=== PATIENT | female | born 1945 | race Caucasian/White ===

== ENCOUNTER 2022-05-07 15:20 | Inpatient (IN) ==
[2022-05-07 17:14] LABS: Red Cell Distribution Width 12.4 % (11.5-14.5)
[2022-05-07 17:15] LABS: Hematocrit 37.8 % (35.3-44.9); Hemoglobin 12.3 g/dL (11.5-15.4); Mean Corpuscular HGB Conc 32.5 g/dL (31.6-35.5); Mean Corpuscular Hemoglobin 30.2 pg (28.0-33.3); Mean Corpuscular Volume 92.9 fL (83.0-100.0); Mean Platelet Volume 10.6 fL (9.4-12.4); Monocytes # 0.2 K/mcL (0.0-1.3); Platelet Count 120 K/mcL (140-400); Red Blood Count 4.07 M/mcL (3.82-4.97); White Blood Count 1.7 K/mcL (4.3-11.1)
[2022-05-07 17:23] LABS: Prothrombin Time 11.2 Seconds (9.4-12.1)
[2022-05-07 17:25] LABS: Activated Partial Thrombo Time 29.2 Seconds (26.0-36.0)
[2022-05-07 17:35] LABS: Albumin 4.1 g/dL (3.5-5.7); Albumin/Globulin Ratio 1.4 (1.1-2.2); Bilirubin,Indirect 0.3 mg/dL (0.0-1.0); Bilirubin,Total 0.3 mg/dL (0.3-1.0); Calcium 9.2 mg/dL (8.6-10.3); Magnesium 1.3 mg/dL (1.6-2.6); Phosphorous 3.3 mg/dL (2.7-4.5); Potassium 5.2 mEq/L (3.5-5.1); Total Protein 7.1 g/dL (6.4-8.9); Troponin I 0.03 ng/mL (< 0.04)
[2022-05-07] MEDS ORDERED: 0.9 % Sodium Chloride 1,000 ML IVC ONE (17:43)
[2022-05-07] MEDS ORDERED: Acetaminophen 325 MG TABLET PO ONE (17:59)
[2022-05-07] MEDS ORDERED: Magnesium Sulfate 1 GM/102 ML PIGGYBACK IVPB ONE (18:00)
[2022-05-07] MEDS ORDERED: Cefepime HCl 2,000 MG in 0.9 % Sodium Chloride 10 ML IVP ONE (18:00)
[2022-05-07 18:03] LABS: Lymphocytes # 0.8 K/mcL (0.6-4.6); Neutrophils # 0.8 K/mcL (1.6-8.9)
[2022-05-07 18:04] LABS: Platelet Estimate Normal (Normal)
[2022-05-07 18:38] LABS: Amorphous Sediment,Urine Few per hpf (None-Few); Bilirubin,Urine Negative (Negative); Blood,Urine Small (Negative); Clarity,Urine Clear (Clear); Color,Urine Light-Yellow (Yellow); Glucose,Urine (UA) Normal (Normal); Ketones,Urine 10 mg/dL (Negative); Leukocyte Esterase,Urine Negative (Negative); Nitrite,Urine Negative (Negative); PH,Urine 5.5 pH Units (5.0-8.0); Protein,Urine 30 mg/dL (Neg-Trace); Specific Gravity,Urine 1.019 (1.010-1.025); Squamous Epithelial Cell,Urine Few per hpf (None-Few); Urobilinogen,Urine Normal (Normal); WBC,Urine 0-3 per hpf (0-3)
[2022-05-07 18:43] LABS: Influenza A PCR Negative (Negative); Influenza B PCR Negative (Negative); Resp. Syncytial Virus PCR Negative (Negative)
[2022-05-07 18:57] LABS: SARS-CoV-2 by PCR (In House) Negative (Negative)
[2022-05-07] MEDS ORDERED: Ondansetron 4 MG/2 ML VIAL IVP PRN (21:40)
[2022-05-07] MEDS ORDERED: Acetaminophen 325 MG TABLET PO PRN (21:40)
[2022-05-07] MEDS ORDERED: Naloxone 0.4 MG/ML INJ IVP PRN (21:40)
[2022-05-07] MEDS ORDERED: Haloperidol Lactate 5 MG/ML VIAL IVP ONE (22:10)
[2022-05-07 22:13] LABS: Amphetamine Screen,Urine Negative ng/mL (Cutoff=1000); Barbiturate Screen,Urine Negative ng/mL (Cutoff=200); Benzodiazepines Screen,Urine Negative ng/mL (Cutoff=200); Cannabinoid Screen,Urine Negative ng/mL (Cutoff = 50); Cocaine Screen,Urine Negative ng/mL (Cutoff= 300); Opiate Screen,Urine Negative ng/mL (Cutoff=300); Phencyclidine Screen,Urine Negative ng/mL (Cutoff=25)
[2022-05-07] MEDS: 0.9 % Sodium Chloride 1,000 ML IVC SCH (22:17)
[2022-05-07] MEDS: rOPINIRole 0.25 MG TABLET PO SCH (22:18)
[2022-05-07] MEDS ORDERED: *HR* LORazepam 2 MG/ML VIAL IVP ONE (22:49)
[2022-05-07] MEDS ORDERED: Dextrose Gel 15 GM/37.5 ML TUBE PO PRN ×2 (23:11)
[2022-05-07] MEDS ORDERED: D5% in Water 1,000 ML IVC PRN (23:11)
[2022-05-08] MEDS ORDERED: Morphine Sulfate 2 MG/ML SYRINGE IVP ONE ×2 (00:20→08:39)
[2022-05-08 02:40] LABS: Adenovirus Not Detected (Not Detect); Bordetella Pertussis Not Detected (Not Detect); Chlamydophila pneumoniae Not Detected (Not Detect); Coronavirus 229E Not Detected (Not Detect); Coronavirus HKU1 Not Detected (Not Detect); Coronavirus NL63 Not Detected (Not Detect); Coronavirus OC43 Not Detected (Not Detect); Human Metapneumovirus Not Detected (Not Detect); Human Rhinovirus/Enterovirus Not Detected (Not Detect); Influenza A Subtype 2009 H1 Not Detected (Not Detect); Influenza B Not Detected (Not Detect); Mycoplasma pneumoniae Not Detected (Not Detect); Parainfluenza Virus 1 Not Detected (Not Detect); Parainfluenza Virus 2 Not Detected (Not Detect); Parainfluenza Virus 3 Not Detected (Not Detect); Parainfluenza Virus 4 Not Detected (Not Detect); Respiratory Syncytial Virus Not Detected (Not Detect); SARS-CoV-2 Not Detected (Not Detect)
[2022-05-08 03:58] LABS: Hematocrit 34.2 % (35.3-44.9); Hemoglobin 11.1 g/dL (11.5-15.4); Mean Corpuscular HGB Conc 32.5 g/dL (31.6-35.5); Mean Corpuscular Hemoglobin 30.7 pg (28.0-33.3)
[2022-05-08 03:59] LABS: Immature Platelets 5.2 % (1.1-6.1); Mean Corpuscular Volume 94.5 fL (83.0-100.0); Mean Platelet Volume 10.9 fL (9.4-12.4); Prothrombin Time 11.6 Seconds (9.4-12.1); Red Blood Count 3.62 M/mcL (3.82-4.97); Red Cell Distribution Width 12.3 % (11.5-14.5); White Blood Count 1.9 K/mcL (4.3-11.1)
[2022-05-08 04:12] LABS: Calcium 8.6 mg/dL (8.6-10.3); Magnesium 1.6 mg/dL (1.6-2.6); Potassium 4.6 mEq/L (3.5-5.1)
[2022-05-08 04:14] LABS: Estimated Average Glucose 131 mg/dl; Hemoglobin A1C 6.2 %
[2022-05-08 04:18] LABS: C-Reactive Protein < 5 mg/L (Less than 10)
[2022-05-08 04:25] LABS: Thyroid Stimulating Hormone 2.193 mcIU/mL (0.340-5.600)
[2022-05-08 04:38] LABS: Folate > 22.3 ng/mL (3.0-16.0); Platelet Count 90 K/mcL (140-400); Vitamin B12 625 pg/mL (250-1100)
[2022-05-08 04:42] LABS: Monocytes # 0.1 K/mcL (0.0-1.3); Neutrophils # 0.8 K/mcL (1.6-8.9); Platelet Estimate Decreased (Normal)
[2022-05-08 05:49] LABS: Hepatitis B Surface Antigen Nonreactive (Nonreactive)
[2022-05-08] MEDS ORDERED: Cefepime HCl 2,000 MG in 0.9 % Sodium Chloride Mini Bag 100 ML IVPB SCH (06:00)
[2022-05-08] MEDS ORDERED: *HR* Heparin 5,000 UNIT/ML VIAL SQ SCH (06:00)
[2022-05-08 06:18] LABS: Hepatitis C Virus Antibody Nonreactive (Nonreactive)
[2022-05-08 06:19] LABS: Hepatitis B Core IgM Nonreactive (Nonreactive)
[2022-05-08 06:20] LABS: Hepatitis A Antibody IgM Nonreactive (Nonreactive)
[2022-05-08] MEDS: Insulin LISPRO 300 UNITS/3 ML VIAL SUBQ SCH ×3 (08:09→17:19)
[2022-05-08] MEDS: carvediloL 6.25 MG TABLET PO SCH (08:10)
[2022-05-08] MEDS: 0.9 % Sodium Chloride 1,000 ML IVC SCH (08:15)
[2022-05-08] MEDS ORDERED: Azithromycin 500 MG in 0.9 % Sodium Chloride 250 ML IVPB SCH (09:00)
[2022-05-08] MEDS ORDERED: Acetaminophen IV 1,000 MG/100 ML BAG IVPB ONE (09:37)
[2022-05-08] MEDS ORDERED: *HR* LORazepam 2 MG/ML VIAL IVP ONE (12:34)
[2022-05-08] MEDS: cefTRIAXone 2,000 MG in 0.9 % Sodium Chloride Mini Bag 100 ML IVPB SCH ×2 (12:42→23:09)
[2022-05-08] MEDS: Doxycycline 100 MG in 0.9 % Sodium Chloride Mini Bag 100 ML IVPB SCH (12:45)
[2022-05-08] MEDS: rOPINIRole 0.25 MG TABLET PO SCH (21:16)
[2022-05-08] MEDS: Morphine Sulfate 2 MG/ML SYRINGE IVP PRN (21:17)
[2022-05-09] MEDS: Doxycycline 100 MG in 0.9 % Sodium Chloride Mini Bag 100 ML IVPB SCH ×2 (00:18→13:43)
[2022-05-09 01:42] LABS: Hemoglobin 11.3 g/dL (11.5-15.4); Mean Corpuscular Volume 95.1 fL (83.0-100.0); Red Cell Distribution Width 12.3 % (11.5-14.5)
[2022-05-09 01:44] LABS: Hematocrit 34.9 % (35.3-44.9); Immature Platelets 5.6 % (1.1-6.1); Lymphocytes % 46.9 %; Mean Corpuscular HGB Conc 32.4 g/dL (31.6-35.5); Mean Corpuscular Hemoglobin 30.8 pg (28.0-33.3); Mean Platelet Volume 10.6 fL (9.4-12.4); Monocytes # 0.2 K/mcL (0.0-1.3); Monocytes % 9.7 %; Neutrophils # 0.9 K/mcL (1.6-8.9); Red Blood Count 3.67 M/mcL (3.82-4.97); Segmented Neutrophils % 41.4 %; White Blood Count 2.1 K/mcL (4.3-11.1)
[2022-05-09 01:51] LABS: Platelet Count 84 K/mcL (140-400)
[2022-05-09 02:01] LABS: Albumin 3.2 g/dL (3.5-5.7); Albumin/Globulin Ratio 1.2 (1.1-2.2); Bilirubin,Total 0.2 mg/dL (0.3-1.0); Calcium 8.4 mg/dL (8.6-10.3); Globulin 2.6 g/dL (2.4-3.5); Magnesium 1.2 mg/dL (1.6-2.6); Potassium 4.1 mEq/L (3.5-5.1); Total Protein 5.8 g/dL (6.4-8.9)
[2022-05-09 02:07] LABS: Platelet Estimate Slight Decrease (Normal)
[2022-05-09] MEDS: Morphine Sulfate 2 MG/ML SYRINGE IVP PRN ×3 (04:52→20:16)
[2022-05-09] MEDS ORDERED: *HR* LORazepam 2 MG/ML VIAL IVP ONE ×2 (06:23→14:01)
[2022-05-09] MEDS: Insulin LISPRO 300 UNITS/3 ML VIAL SUBQ SCH ×3 (08:03→17:27)
[2022-05-09] MEDS: carvediloL 6.25 MG TABLET PO SCH (08:22)
[2022-05-09] MEDS ORDERED: *HR* LORazepam 2 MG/ML VIAL IM STA (08:48)
[2022-05-09] MEDS ORDERED: Vancomycin 1,500 MG/265 ML IV.SOLN IVPB ONE (11:00)
[2022-05-09] MEDS ORDERED: *HR* LORazepam 2 MG/ML VIAL IVP PRN (11:20)
[2022-05-09] MEDS: Acyclovir 550 MG in D5% in Water 100 ML IVPB SCH ×2 (11:43→20:16)
[2022-05-09] MEDS: Ampicillin 2,000 MG in 0.9 % Sodium Chloride Mini Bag 100 ML IVPB SCH ×4 (11:43→23:38)
[2022-05-09] MEDS: cefTRIAXone 2,000 MG in 0.9 % Sodium Chloride Mini Bag 100 ML IVPB SCH ×2 (11:44→21:59)
[2022-05-09] MEDS: *HR* LORazepam 2 MG/ML VIAL IVP PRN (16:01)
[2022-05-09] MEDS: Dexmedetomidine HCl 400 MCG/100 ML MLS IVC SCH (17:00)
[2022-05-09] MEDS ORDERED: 0.9 % Sodium Chloride 500 ML IVC ONE (18:06)
[2022-05-09] MEDS ORDERED: 0.9 % Sodium Chloride 500 ML ONE (18:08)
[2022-05-09] MEDS: rOPINIRole 0.25 MG TABLET PO SCH (20:45)
[2022-05-10] MEDS: Doxycycline 100 MG in 0.9 % Sodium Chloride Mini Bag 100 ML IVPB SCH ×2 (02:02→15:05)
[2022-05-10 02:30] LABS: Basophils % 0.9 %; Mean Corpuscular Hemoglobin 30.1 pg (28.0-33.3); Mean Platelet Volume 11.5 fL (9.4-12.4); Monocytes % 13.2 %
[2022-05-10 02:32] LABS: Hematocrit 35.8 % (35.3-44.9); Hemoglobin 11.5 g/dL (11.5-15.4); Immature Granulocytes % 0.9 % (0-4); Immature Platelets 5.9 % (1.1-6.1); Mean Corpuscular HGB Conc 32.1 g/dL (31.6-35.5); Mean Corpuscular Volume 93.7 fL (83.0-100.0); Monocytes # 0.4 K/mcL (0.0-1.3); Red Blood Count 3.82 M/mcL (3.82-4.97); Red Cell Distribution Width 12.3 % (11.5-14.5); White Blood Count 3.3 K/mcL (4.3-11.1)
[2022-05-10 02:40] LABS: Lymphocytes # 1.5 K/mcL (0.6-4.6); Neutrophils # 1.4 K/mcL (1.6-8.9); Platelet Count 99 K/mcL (140-400)
[2022-05-10 02:51] LABS: Albumin/Globulin Ratio 1.2 (1.1-2.2); Bilirubin,Total 0.2 mg/dL (0.3-1.0); Calcium 8.4 mg/dL (8.6-10.3); Globulin 2.5 g/dL (2.4-3.5); Potassium 4.2 mEq/L (3.5-5.1); Total Protein 5.5 g/dL (6.4-8.9)
[2022-05-10 02:53] LABS: Platelet Estimate Slight Decrease (Normal)
[2022-05-10] MEDS: Ampicillin 2,000 MG in 0.9 % Sodium Chloride Mini Bag 100 ML IVPB SCH ×4 (02:59→17:50)
[2022-05-10] MEDS: Acyclovir 550 MG in D5% in Water 100 ML IVPB SCH ×3 (03:33→20:14)
[2022-05-10] MEDS ORDERED: 0.9 % Sodium Chloride 500 ML IVC ONE ×2 (04:14→05:08)
[2022-05-10] MEDS: *HR* LORazepam 2 MG/ML VIAL IVP PRN ×2 (06:25→21:15)
[2022-05-10] MEDS: carvediloL 6.25 MG TABLET PO SCH (08:26)
[2022-05-10] MEDS: Insulin LISPRO 300 UNITS/3 ML VIAL SUBQ SCH ×3 (08:28→17:40)
[2022-05-10 10:56] LABS: EBV Ab(Viral Capsid Ag)VCA-IGG >750.0 U/mL (0.0-21.9)
[2022-05-10] MEDS: cefTRIAXone 2,000 MG in 0.9 % Sodium Chloride Mini Bag 100 ML IVPB SCH ×2 (11:39→23:09)
[2022-05-10] MEDS: Dexmedetomidine HCl 400 MCG/100 ML MLS IVC SCH ×2 (15:04→23:48)
[2022-05-10] MEDS: rOPINIRole 0.25 MG TABLET PO SCH (20:14)
[2022-05-10] MEDS ORDERED: Dexmedetomidine HCl 400 MCG/100 ML MLS IVC SCH (23:13)
[2022-05-10] MEDS: Morphine Sulfate 2 MG/ML SYRINGE IVP PRN (23:25)
[2022-05-11] MEDS: Ampicillin 2,000 MG in 0.9 % Sodium Chloride Mini Bag 100 ML IVPB SCH ×5 (00:13→16:54)
[2022-05-11 00:31] LABS: Basophils % 0.5 %; Hematocrit 35.1 % (35.3-44.9); Hemoglobin 11.7 g/dL (11.5-15.4); Immature Granulocytes % 0.6 % (0-4); Lymphocytes # 1.8 K/mcL (0.6-4.6); Lymphocytes % 22.9 %; Mean Corpuscular HGB Conc 33.3 g/dL (31.6-35.5); Mean Corpuscular Hemoglobin 30.4 pg (28.0-33.3); Mean Corpuscular Volume 91.2 fL (83.0-100.0); Mean Platelet Volume 11.1 fL (9.4-12.4); Monocytes # 1.1 K/mcL (0.0-1.3); Monocytes % 13.6 %; Neutrophils # 4.9 K/mcL (1.6-8.9); Platelet Count 119 K/mcL (140-400); Red Blood Count 3.85 M/mcL (3.82-4.97); Red Cell Distribution Width 12.5 % (11.5-14.5); Segmented Neutrophils % 62.4 %
[2022-05-11 00:35] LABS: White Blood Count 7.9 K/mcL (4.3-11.1)
[2022-05-11 00:51] LABS: Albumin 3.2 g/dL (3.5-5.7); Albumin/Globulin Ratio 1.2 (1.1-2.2); Bilirubin,Total 0.3 mg/dL (0.3-1.0); Calcium 8.6 mg/dL (8.6-10.3); Globulin 2.6 g/dL (2.4-3.5); Potassium 3.6 mEq/L (3.5-5.1); Total Protein 5.8 g/dL (6.4-8.9)
[2022-05-11 01:29] LABS: Platelet Estimate Slight Decrease (Normal)
[2022-05-11] MEDS: Doxycycline 100 MG in 0.9 % Sodium Chloride Mini Bag 100 ML IVPB SCH ×2 (01:43→14:34)
[2022-05-11] MEDS: Vancomycin 1,250 MG/262.5 ML IV.SOLN IVPB SCH (02:39)
[2022-05-11] MEDS: Acyclovir 550 MG in D5% in Water 100 ML IVPB SCH ×3 (03:53→22:15)
[2022-05-11] MEDS: Dexmedetomidine HCl 400 MCG/100 ML MLS IVC SCH ×2 (04:50→22:12)
[2022-05-11] MEDS: Insulin LISPRO 300 UNITS/3 ML VIAL SUBQ SCH ×4 (09:02→21:37)
[2022-05-11] MEDS ORDERED: Insulin LISPRO 300 UNITS/3 ML VIAL SUBQ SCH (09:15)
[2022-05-11] MEDS: D5% in Water 1,000 ML IVC SCH ×2 (09:49→22:11)
[2022-05-11] MEDS: carvediloL 6.25 MG TABLET PO SCH (11:41)
[2022-05-11] MEDS: cefTRIAXone 2,000 MG in 0.9 % Sodium Chloride Mini Bag 100 ML IVPB SCH ×2 (11:42→22:14)
[2022-05-11] MEDS ORDERED: Haloperidol Lactate 5 MG/ML VIAL IVP ONE (13:32)
[2022-05-11] MEDS: Dexamethasone Sodium Phos/PF 10 MG/ML VIAL IVP SCH (15:57)
[2022-05-11] MEDS: *HR* LORazepam 2 MG/ML VIAL IVP PRN (20:24)
[2022-05-11] MEDS: Morphine Sulfate 2 MG/ML SYRINGE IVP PRN (20:24)
[2022-05-11] MEDS: rOPINIRole 0.25 MG TABLET PO SCH (21:38)
[2022-05-12] MEDS: Ampicillin 2,000 MG in 0.9 % Sodium Chloride Mini Bag 100 ML IVPB SCH ×5 (00:05→23:33)
[2022-05-12] MEDS: Insulin LISPRO 300 UNITS/3 ML VIAL SUBQ SCH ×7 (00:07→22:46)
[2022-05-12] MEDS: Vancomycin 1,250 MG/262.5 ML IV.SOLN IVPB SCH (02:12)
[2022-05-12] MEDS: Doxycycline 100 MG in 0.9 % Sodium Chloride Mini Bag 100 ML IVPB SCH (02:12)
[2022-05-12 02:27] LABS: Hematocrit 32.8 % (35.3-44.9); Immature Granulocytes % 0.6 % (0-4); Mean Corpuscular Volume 91.4 fL (83.0-100.0); Red Blood Count 3.59 M/mcL (3.82-4.97)
[2022-05-12 02:29] LABS: Basophils % 0.4 %; Hemoglobin 10.8 g/dL (11.5-15.4); Immature Platelets 5.7 % (1.1-6.1); Lymphocytes # 1.1 K/mcL (0.6-4.6); Lymphocytes % 21.2 %; Mean Corpuscular HGB Conc 32.9 g/dL (31.6-35.5); Mean Corpuscular Hemoglobin 30.1 pg (28.0-33.3); Mean Platelet Volume 10.6 fL (9.4-12.4); Monocytes # 0.7 K/mcL (0.0-1.3); Monocytes % 12.7 %; Neutrophils # 3.4 K/mcL (1.6-8.9); Platelet Count 114 K/mcL (140-400); Red Cell Distribution Width 12.5 % (11.5-14.5); Segmented Neutrophils % 65.1 %; White Blood Count 5.2 K/mcL (4.3-11.1)
[2022-05-12 02:47] LABS: Albumin/Globulin Ratio 1.2 (1.1-2.2); Bilirubin,Total 0.3 mg/dL (0.3-1.0); Calcium 8.1 mg/dL (8.6-10.3); Globulin 2.5 g/dL (2.4-3.5); Potassium 3.1 mEq/L (3.5-5.1); Total Protein 5.5 g/dL (6.4-8.9)
[2022-05-12 04:00] LABS: Magnesium 1.2 mg/dL (1.6-2.6)
[2022-05-12 04:21] LABS: Platelet Estimate Slight Decrease (Normal); Reactive Lymphocytes Present (Not Present)
[2022-05-12] MEDS: Dexmedetomidine HCl 400 MCG/100 ML MLS IVC SCH ×3 (05:01→22:04)
[2022-05-12 05:29] LABS: Anaplasma phagocytophilum IgG <1:80 (<1:80); Anaplasma phagocytophilum IgM < 1:16 (< 1:16)
[2022-05-12] MEDS: carvediloL 6.25 MG TABLET PO SCH (08:12)
[2022-05-12] MEDS: Dexamethasone Sodium Phos/PF 10 MG/ML VIAL IVP SCH (08:44)
[2022-05-12] MEDS: Acyclovir 550 MG in D5% in Water 100 ML IVPB SCH ×2 (10:48→22:46)
[2022-05-12] MEDS: D5% in Water 1,000 ML IVC SCH (10:55)
[2022-05-12] MEDS: diazePAM 10 MG/2 ML SYRINGE IVP PRN ×3 (11:08→22:45)
[2022-05-12] MEDS: cefTRIAXone 2,000 MG in 0.9 % Sodium Chloride Mini Bag 100 ML IVPB SCH ×2 (11:17→22:44)
[2022-05-12] MEDS: Thiamine (B-1) 100 MG in 0.9 % Sodium Chloride 50 ML IVPB SCH (16:55)
[2022-05-12] MEDS: Morphine Sulfate 2 MG/ML SYRINGE IVP PRN (17:42)
[2022-05-12] MEDS ORDERED: diazePAM 10 MG/2 ML SYRINGE IVP ONE (18:01)
[2022-05-12] MEDS: rOPINIRole 0.25 MG TABLET PO SCH (19:21)
[2022-05-13] MEDS: Morphine Sulfate 2 MG/ML SYRINGE IVP PRN (00:09)
[2022-05-13 00:50] LABS: ABG Base Excess -4 mEq/L (-2 to 3); ABG HCO3 20 mEq/L (21-27); ABG Oxygen Saturation 92 % (95-98); ABG PCO2 32 mmHg (35-45); ABG PH 7.41 pH Units (7.32-7.45); ABG PO2 63 mmHg (85-104); ABG TCO2 21 mEq/L (20-26)
[2022-05-13] MEDS: Levalbuterol Neb 1.25 MG/3 ML IH SCH ×2 (00:55→03:45)
[2022-05-13] MEDS: D5% in Water 1,000 ML IVC SCH ×2 (00:56→16:22)
[2022-05-13] MEDS ORDERED: Furosemide 40 MG/4 ML VIAL IVP ONE (01:04)
[2022-05-13 03:10] LABS: Basophils # 0.1 K/mcL (0.0-0.2); Basophils % 0.4 %; Hematocrit 37.5 % (35.3-44.9); Hemoglobin 12.7 g/dL (11.5-15.4); Immature Granulocytes % 0.5 % (0-4); Lymphocytes % 12.8 %; Mean Corpuscular HGB Conc 33.9 g/dL (31.6-35.5); Mean Corpuscular Hemoglobin 30.8 pg (28.0-33.3); Mean Corpuscular Volume 90.8 fL (83.0-100.0); Mean Platelet Volume 10.8 fL (9.4-12.4); Monocytes # 1.9 K/mcL (0.0-1.3); Monocytes % 12.7 %; Neutrophils # 11.3 K/mcL (1.6-8.9); Platelet Count 165 K/mcL (140-400); Red Blood Count 4.13 M/mcL (3.82-4.97); Red Cell Distribution Width 12.9 % (11.5-14.5); Segmented Neutrophils % 73.6 %
[2022-05-13 03:29] LABS: Albumin 3.3 g/dL (3.5-5.7); Albumin/Globulin Ratio 1.1 (1.1-2.2); Bilirubin,Total 0.4 mg/dL (0.3-1.0); Calcium 8.9 mg/dL (8.6-10.3); Globulin 3.1 g/dL (2.4-3.5); Potassium 3.4 mEq/L (3.5-5.1); Total Protein 6.4 g/dL (6.4-8.9)
[2022-05-13 03:40] LABS: Platelet Estimate Normal (Normal); White Blood Count 15.3 K/mcL (4.3-11.1)
[2022-05-13] MEDS: Insulin LISPRO 300 UNITS/3 ML VIAL SUBQ SCH ×6 (03:48→23:45)
[2022-05-13] MEDS: Vancomycin 1,250 MG/262.5 ML IV.SOLN IVPB SCH (03:48)
[2022-05-13] MEDS: diazePAM 10 MG/2 ML SYRINGE IVP PRN (04:34)
[2022-05-13] MEDS ORDERED: *HR* Metoprolol 5 MG/5 ML VIAL IVP ONE ×3 (04:40→14:02)
[2022-05-13] MEDS ORDERED: *HR* Etomidate 20 MG/10 ML AMPUL IVP ONE (05:30)
[2022-05-13] MEDS ORDERED: *HR* Midazolam HCl 5 MG/5 ML VIAL IVP ONE (05:30)
[2022-05-13] MEDS ORDERED: *HR* Midazolam HCl 2 MG/2 ML VIAL IVP ONE (05:30)
[2022-05-13] MEDS ORDERED: Artificial Tears SOLN 15 ML BOTTLE BOTH EYES PRN (05:41)
[2022-05-13] MEDS: FentaNYL (PF) 1,000 MCG/100 ML IV.SOLN IVC SCH ×2 (05:52→21:26)
[2022-05-13] MEDS: Ampicillin 2,000 MG in 0.9 % Sodium Chloride Mini Bag 100 ML IVPB SCH ×4 (06:00→23:48)
[2022-05-13] MEDS: Norepinephrine 4 MG/254 ML IV.SOLN IVC SCH (06:21)
[2022-05-13] MEDS: Dexmedetomidine HCl 400 MCG/100 ML MLS IVC SCH ×4 (06:41→23:45)
[2022-05-13 06:51] LABS: ABG Base Excess -2 mEq/L (-2 to 3); ABG HCO3 22 mEq/L (21-27); ABG Oxygen Saturation 100 % (95-98); ABG PCO2 30 mmHg (35-45); ABG PH 7.46 pH Units (7.32-7.45); ABG PO2 155 mmHg (85-104); ABG TCO2 23 mEq/L (20-26); Blood Gas VT 450 cc
[2022-05-13 08:12] LABS: Magnesium 1.3 mg/dL (1.6-2.6); Troponin I 5.6 ng/mL (< 0.04)
[2022-05-13] MEDS: Ipratropium/Albuterol Neb 3 ML IH SCH ×5 (08:12→23:32)
[2022-05-13] MEDS ORDERED: Potassium Chloride Elixir 20 MEQ/15 ML UDC PO ONE ×2 (08:22→21:14)
[2022-05-13] MEDS: Pantoprazole 40 MG VIAL IVP SCH (08:51)
[2022-05-13] MEDS: Artificial Tears SOLN 15 ML BOTTLE BOTH EYES SCH ×5 (08:51→23:42)
[2022-05-13] MEDS: Chlorhexidine Rinse 15 ML MOUTHWASH MM SCH ×2 (08:51→20:53)
[2022-05-13] MEDS: Dexamethasone Sodium Phos/PF 10 MG/ML VIAL IVP SCH (08:52)
[2022-05-13] MEDS: Furosemide 20 MG/2 ML VIAL IVP SCH ×2 (08:52→16:13)
[2022-05-13] MEDS ORDERED: *HR* Heparin 5,000 UNIT/ML VIAL IVP ONE (09:08)
[2022-05-13] MEDS ORDERED: *HR* Heparin 5,000 UNIT/ML VIAL IVP PRN (09:08)
[2022-05-13] MEDS: Thiamine (B-1) 100 MG in 0.9 % Sodium Chloride 50 ML IVPB SCH (09:38)
[2022-05-13 10:13] LABS: Adenovirus Not Detected (Not Detect); Bordetella Pertussis Not Detected (Not Detect); Chlamydophila pneumoniae Not Detected (Not Detect); Coronavirus 229E Not Detected (Not Detect); Coronavirus HKU1 Not Detected (Not Detect); Coronavirus NL63 Not Detected (Not Detect); Coronavirus OC43 Not Detected (Not Detect); Human Metapneumovirus Not Detected (Not Detect); Human Rhinovirus/Enterovirus Not Detected (Not Detect); Influenza A Subtype 2009 H1 Not Detected (Not Detect); Influenza B Not Detected (Not Detect); Mycoplasma pneumoniae Not Detected (Not Detect); Parainfluenza Virus 1 Not Detected (Not Detect); Parainfluenza Virus 2 Not Detected (Not Detect); Parainfluenza Virus 3 Not Detected (Not Detect); Parainfluenza Virus 4 Not Detected (Not Detect); Respiratory Syncytial Virus Not Detected (Not Detect); SARS-CoV-2 Not Detected (Not Detect)
[2022-05-13] MEDS: carvediloL 6.25 MG TABLET PO SCH (11:23)
[2022-05-13] MEDS: cefTRIAXone 2,000 MG in 0.9 % Sodium Chloride Mini Bag 100 ML IVPB SCH ×2 (11:40→23:08)
[2022-05-13] MEDS: Acyclovir 550 MG in D5% in Water 100 ML IVPB SCH ×2 (11:41→23:10)
[2022-05-13] MEDS: Heparin 25,000UNIT/250ML 1/2NS 25,000 UNIT/250 ML IV.SOLN IVC SCH (11:42)
[2022-05-13 12:04] LABS: INR 1.6; Prothrombin Time 18.3 Seconds (9.4-12.1)
[2022-05-13 12:06] LABS: Heparin anti-factor XA UFH 0.08 IU/mL (0.30-0.70)
[2022-05-13 12:18] LABS: Magnesium 3.1 mg/dL (1.6-2.6); Potassium 3.2 mEq/L (3.5-5.1)
[2022-05-13 12:22] LABS: Troponin I 3.33 ng/mL (< 0.04)
[2022-05-13] MEDS: Potassium Chloride 40 MEQ/200 ML BAG IVPB PRN ×3 (14:08→22:07)
[2022-05-13] MEDS ORDERED: Amiodarone Premix 360 MG/200 ML BAG IVC ONE (15:42)
[2022-05-13] MEDS ORDERED: Amiodarone Premix 150 MG/100 ML BAG IVPB ONE (15:42)
[2022-05-13 18:51] LABS: Calcium 8.6 mg/dL (8.6-10.3); Magnesium 2.5 mg/dL (1.6-2.6); Troponin I 2.17 ng/mL (< 0.04)
[2022-05-13 19:09] LABS: Hepatitis B Surface Antigen Nonreactive (Nonreactive)
[2022-05-13 19:38] LABS: Hepatitis C Virus Antibody Nonreactive (Nonreactive)
[2022-05-13 19:39] LABS: Hepatitis B Core IgM Nonreactive (Nonreactive)
[2022-05-13 19:40] LABS: Hepatitis A Antibody IgM Nonreactive (Nonreactive)
[2022-05-13] MEDS: rOPINIRole 0.25 MG TABLET PO SCH (20:53)
[2022-05-13] MEDS ORDERED: Potassium Chloride Elixir 20 MEQ/15 ML UDC GTUBE STA (21:50)
[2022-05-13] MEDS: Amiodarone Premix 360 MG/200 ML BAG IVC SCH (22:08)
[2022-05-14] MEDS ORDERED: Furosemide 20 MG/2 ML VIAL IVP ONE (00:33)
[2022-05-14 01:19] LABS: Potassium 3.5 mEq/L (3.5-5.1)
[2022-05-14 01:24] LABS: Troponin I 1.28 ng/mL (< 0.04)
[2022-05-14] MEDS: Vancomycin 1,250 MG/262.5 ML IV.SOLN IVPB SCH (02:20)
[2022-05-14] MEDS: Artificial Tears SOLN 15 ML BOTTLE BOTH EYES SCH ×6 (03:18→23:52)
[2022-05-14] MEDS: Insulin LISPRO 300 UNITS/3 ML VIAL SUBQ SCH ×6 (03:19→23:59)
[2022-05-14 04:01] LABS: VBG Ionized Calcium 1.07 mmol/L (1.15-1.35)
[2022-05-14] MEDS: Ipratropium/Albuterol Neb 3 ML IH SCH ×6 (04:11→23:14)
[2022-05-14 04:13] LABS: Mean Corpuscular Hemoglobin 30.2 pg (28.0-33.3); Red Blood Count 2.95 M/mcL (3.82-4.97)
[2022-05-14 04:15] LABS: Basophils % 0.1 %; Hematocrit 26.9 % (35.3-44.9); Hemoglobin 8.9 g/dL (11.5-15.4); Immature Granulocytes % 1.1 % (0-4); Immature Platelets 10.5 % (1.1-6.1); Lymphocytes # 0.7 K/mcL (0.6-4.6); Lymphocytes % 8.9 %; Mean Corpuscular HGB Conc 33.1 g/dL (31.6-35.5); Mean Corpuscular Volume 91.2 fL (83.0-100.0); Mean Platelet Volume 11.6 fL (9.4-12.4); Monocytes % 12.1 %; Platelet Count 129 K/mcL (140-400); Segmented Neutrophils % 77.8 %; White Blood Count 8.3 K/mcL (4.3-11.1)
[2022-05-14 04:21] LABS: Neutrophils # 6.5 K/mcL (1.6-8.9)
[2022-05-14 04:31] LABS: Albumin 2.2 g/dL (3.5-5.7); Bilirubin,Total 0.3 mg/dL (0.3-1.0); Globulin 2.2 g/dL (2.4-3.5); Magnesium 1.8 mg/dL (1.6-2.6); Potassium 3.3 mEq/L (3.5-5.1); Total Protein 4.4 g/dL (6.4-8.9)
[2022-05-14 04:38] LABS: Platelet Estimate Normal (Normal)
[2022-05-14 04:44] LABS: ABG Base Excess 0 mEq/L (-2 to 3); ABG HCO3 23 mEq/L (21-27); ABG Oxygen Saturation 98 % (95-98); ABG PCO2 33 mmHg (35-45); ABG PH 7.46 pH Units (7.32-7.45); ABG PO2 93 mmHg (85-104); ABG TCO2 24 mEq/L (20-26); Blood Gas Modality ASSIST CONTROL; Blood Gas VT 400 cc
[2022-05-14] MEDS ORDERED: Potassium Chloride Elixir 20 MEQ/15 ML UDC GTUBE ONE (05:30)
[2022-05-14] MEDS: Norepinephrine 4 MG/254 ML IV.SOLN IVC SCH (06:04)
[2022-05-14] MEDS: D5% in Water 1,000 ML IVC SCH ×2 (06:04→17:41)
[2022-05-14] MEDS: Ampicillin 2,000 MG in 0.9 % Sodium Chloride Mini Bag 100 ML IVPB SCH ×4 (06:05→23:49)
[2022-05-14] MEDS: Dexmedetomidine HCl 400 MCG/100 ML MLS IVC SCH ×3 (06:05→19:10)
[2022-05-14] MEDS: FentaNYL (PF) 1,000 MCG/100 ML IV.SOLN IVC SCH ×2 (06:06→17:31)
[2022-05-14] MEDS: Dexamethasone Sodium Phos/PF 10 MG/ML VIAL IVP SCH (08:09)
[2022-05-14] MEDS: Pantoprazole 40 MG VIAL IVP SCH (08:10)
[2022-05-14] MEDS: Chlorhexidine Rinse 15 ML MOUTHWASH MM SCH ×2 (08:10→20:54)
[2022-05-14] MEDS: Furosemide 20 MG/2 ML VIAL IVP SCH ×2 (08:10→17:29)
[2022-05-14] MEDS: carvediloL 6.25 MG TABLET PO SCH (08:11)
[2022-05-14] MEDS: Thiamine (B-1) 100 MG in 0.9 % Sodium Chloride 50 ML IVPB SCH (08:11)
[2022-05-14] MEDS: Heparin 25,000UNIT/250ML 1/2NS 25,000 UNIT/250 ML IV.SOLN IVC SCH (08:12)
[2022-05-14] MEDS: Amiodarone Premix 360 MG/200 ML BAG IVC SCH ×2 (09:45→23:56)
[2022-05-14] MEDS ORDERED: Calcium Gluconate 1gm/50mL 1 GM/50 ML BAG IVPB PRN (10:11)
[2022-05-14] MEDS ORDERED: *HR* Midazolam HCl 5 MG/5 ML VIAL IVP ONE (10:49)
[2022-05-14] MEDS: diazePAM 10 MG/2 ML SYRINGE IVP PRN ×2 (10:50→18:43)
[2022-05-14 11:25] LABS: Basophils % 0.1 %; Hematocrit 30.8 % (35.3-44.9); Hemoglobin 10.3 g/dL (11.5-15.4); Immature Granulocytes % 1.6 % (0-4); Lymphocytes # 0.6 K/mcL (0.6-4.6); Lymphocytes % 5.7 %; Mean Corpuscular HGB Conc 33.4 g/dL (31.6-35.5); Mean Corpuscular Hemoglobin 30.7 pg (28.0-33.3); Mean Corpuscular Volume 91.7 fL (83.0-100.0); Mean Platelet Volume 11.7 fL (9.4-12.4); Monocytes % 9.4 %; Platelet Count 148 K/mcL (140-400); Red Blood Count 3.36 M/mcL (3.82-4.97); Red Cell Distribution Width 13.1 % (11.5-14.5); Segmented Neutrophils % 83.2 %; White Blood Count 10.8 K/mcL (4.3-11.1)
[2022-05-14 11:44] LABS: Potassium 4.2 mEq/L (3.5-5.1)
[2022-05-14] MEDS: Acyclovir 550 MG in D5% in Water 100 ML IVPB SCH (13:00)
[2022-05-14] MEDS: cefTRIAXone 2,000 MG in 0.9 % Sodium Chloride Mini Bag 100 ML IVPB SCH ×2 (13:02→23:51)
[2022-05-14] MEDS ORDERED: Bisacodyl 10 MG RECTAL SUPPOSITORY RC PRN (15:32)
[2022-05-14 17:33] LABS: Basophils % 0.1 %; Hematocrit 28.9 % (35.3-44.9); Hemoglobin 9.6 g/dL (11.5-15.4); Immature Granulocytes % 1.3 % (0-4); Lymphocytes # 0.5 K/mcL (0.6-4.6); Lymphocytes % 5.5 %; Mean Corpuscular HGB Conc 33.2 g/dL (31.6-35.5); Mean Corpuscular Hemoglobin 30.2 pg (28.0-33.3); Mean Corpuscular Volume 90.9 fL (83.0-100.0); Mean Platelet Volume 11.8 fL (9.4-12.4); Monocytes # 0.7 K/mcL (0.0-1.3); Monocytes % 7.5 %; Neutrophils # 7.7 K/mcL (1.6-8.9); Platelet Count 149 K/mcL (140-400); Red Blood Count 3.18 M/mcL (3.82-4.97); Red Cell Distribution Width 13.2 % (11.5-14.5); Segmented Neutrophils % 85.6 %
[2022-05-14 17:49] LABS: Calcium 8.8 mg/dL (8.6-10.3); Potassium 3.8 mEq/L (3.5-5.1)
[2022-05-14] MEDS: rOPINIRole 0.25 MG TABLET PO SCH (20:54)
[2022-05-15] MEDS: Acyclovir 550 MG in D5% in Water 100 ML IVPB SCH ×3 (00:14→23:27)
[2022-05-15] MEDS: Heparin 25,000UNIT/250ML 1/2NS 25,000 UNIT/250 ML IV.SOLN IVC SCH (00:22)
[2022-05-15] MEDS: Dexmedetomidine HCl 400 MCG/100 ML MLS IVC SCH ×3 (01:56→13:01)
[2022-05-15] MEDS: Vancomycin 1,250 MG/262.5 ML IV.SOLN IVPB SCH ×2 (02:02→23:50)
[2022-05-15] MEDS: FentaNYL (PF) 1,000 MCG/100 ML IV.SOLN IVC SCH ×5 (02:11→23:39)
[2022-05-15] MEDS: Ipratropium/Albuterol Neb 3 ML IH SCH ×6 (03:39→23:13)
[2022-05-15] MEDS: Artificial Tears SOLN 15 ML BOTTLE BOTH EYES SCH ×6 (03:44→23:29)
[2022-05-15] MEDS: Insulin LISPRO 300 UNITS/3 ML VIAL SUBQ SCH ×6 (03:44→23:30)
[2022-05-15 03:48] LABS: VBG Ionized Calcium 1.23 mmol/L (1.15-1.35)
[2022-05-15] MEDS: Norepinephrine 4 MG/254 ML IV.SOLN IVC SCH ×2 (03:49→23:31)
[2022-05-15 04:18] LABS: INR 1.5
[2022-05-15 04:19] LABS: Basophils % 0.1 %; Hematocrit 28.3 % (35.3-44.9); Hemoglobin 9.3 g/dL (11.5-15.4); Immature Granulocytes % 2.3 % (0-4); Lymphocytes # 0.7 K/mcL (0.6-4.6); Mean Corpuscular HGB Conc 32.9 g/dL (31.6-35.5); Mean Corpuscular Hemoglobin 30.6 pg (28.0-33.3); Mean Corpuscular Volume 93.1 fL (83.0-100.0); Mean Platelet Volume 12.2 fL (9.4-12.4); Monocytes % 9.8 %; Neutrophils # 8.3 K/mcL (1.6-8.9); Nucleated Red Blood Cells 0.2 /100 WBC (0); Platelet Count 179 K/mcL (140-400); Red Blood Count 3.04 M/mcL (3.82-4.97); Red Cell Distribution Width 13.2 % (11.5-14.5); Segmented Neutrophils % 80.8 %; White Blood Count 10.2 K/mcL (4.3-11.1)
[2022-05-15 04:20] LABS: Activated Partial Thrombo Time 32.2 Seconds (26.0-36.0)
[2022-05-15 04:23] LABS: Albumin 2.7 g/dL (3.5-5.7); Bilirubin,Direct 0.1 mg/dL (0.0-0.2); Bilirubin,Indirect 0.2 mg/dL (0.0-1.0); Bilirubin,Total 0.3 mg/dL (0.3-1.0); Globulin 2.7 g/dL (2.4-3.5); Magnesium 1.6 mg/dL (1.6-2.6); Phosphorous 2.5 mg/dL (2.7-4.5); Total Protein 5.4 g/dL (6.4-8.9)
[2022-05-15 04:35] LABS: ABG Base Excess 3 mEq/L (-2 to 3); ABG HCO3 26 mEq/L (21-27); ABG Oxygen Saturation 98 % (95-98); ABG PCO2 36 mmHg (35-45); ABG PH 7.47 pH Units (7.32-7.45); ABG PO2 105 mmHg (85-104); ABG TCO2 27 mEq/L (20-26); Blood Gas Modality ASSIST CONTROL; Blood Gas VT 400 cc
[2022-05-15 04:52] LABS: Calcium 8.7 mg/dL (8.6-10.3); Potassium 3.6 mEq/L (3.5-5.1)
[2022-05-15] MEDS: Potassium Chloride 40 MEQ/200 ML BAG IVPB PRN (05:43)
[2022-05-15] MEDS: Ampicillin 2,000 MG in 0.9 % Sodium Chloride Mini Bag 100 ML IVPB SCH ×4 (05:44→23:29)
[2022-05-15] MEDS: D5% in Water 1,000 ML IVC SCH ×2 (08:14→20:38)
[2022-05-15] MEDS: Chlorhexidine Rinse 15 ML MOUTHWASH MM SCH ×2 (08:26→20:26)
[2022-05-15] MEDS: Furosemide 20 MG/2 ML VIAL IVP SCH ×2 (08:26→16:31)
[2022-05-15] MEDS: Dexamethasone Sodium Phos/PF 10 MG/ML VIAL IVP SCH (08:27)
[2022-05-15] MEDS: carvediloL 6.25 MG TABLET PO SCH (08:27)
[2022-05-15] MEDS: Pantoprazole 40 MG VIAL IVP SCH (08:27)
[2022-05-15] MEDS: Thiamine (B-1) 100 MG in 0.9 % Sodium Chloride 50 ML IVPB SCH (08:53)
[2022-05-15] MEDS: cefTRIAXone 2,000 MG in 0.9 % Sodium Chloride Mini Bag 100 ML IVPB SCH ×2 (10:54→23:28)
[2022-05-15 13:24] LABS: EBV Quant Copy/mL <390 cpy/mL; Epstein Barr Virus Qnt Source SERUM
[2022-05-15 15:15] LABS: Red Blood Cell,CSF < 2000 RBC/mcL
[2022-05-15 15:17] LABS: Appearance,CSF Clear (Clear)
[2022-05-15] MEDS ORDERED: *HR* Amiodarone 200 MG TABLET PO ONE (15:38)
[2022-05-15 15:39] LABS: Glucose,CSF 123 mg/dL (40-70); Total Protein,CSF 49 mg/dL (15-45)
[2022-05-15] MEDS: *HR* Amiodarone 200 MG TABLET PO SCH (20:26)
[2022-05-15] MEDS: rOPINIRole 0.25 MG TABLET PO SCH (20:27)
[2022-05-16] MEDS: Dexmedetomidine HCl 400 MCG/100 ML MLS IVC SCH ×3 (00:03→13:00)
[2022-05-16 00:34] LABS: Calcium 9.1 mg/dL (8.6-10.3); Potassium 3.6 mEq/L (3.5-5.1)
[2022-05-16] MEDS: Ipratropium/Albuterol Neb 3 ML IH SCH ×6 (04:33→23:21)
[2022-05-16 04:37] LABS: ABG Base Excess 7 mEq/L (-2 to 3); ABG HCO3 30 mEq/L (21-27); ABG Oxygen Saturation 97 % (95-98); ABG PCO2 35 mmHg (35-45); ABG PH 7.53 pH Units (7.32-7.45); ABG PO2 81 mmHg (85-104); ABG TCO2 31 mEq/L (20-26); Blood Gas VT 400 cc
[2022-05-16 04:41] LABS: Basophils % 0.1 %; Hematocrit 29.1 % (35.3-44.9); Hemoglobin 9.6 g/dL (11.5-15.4); Immature Granulocytes % 1.6 % (0-4); Lymphocytes # 0.9 K/mcL (0.6-4.6); Lymphocytes % 9.3 %; Mean Corpuscular Hemoglobin 30.4 pg (28.0-33.3); Mean Corpuscular Volume 92.1 fL (83.0-100.0); Mean Platelet Volume 11.3 fL (9.4-12.4); Monocytes # 0.9 K/mcL (0.0-1.3); Monocytes % 9.4 %; Neutrophils # 7.9 K/mcL (1.6-8.9); Platelet Count 197 K/mcL (140-400); Red Blood Count 3.16 M/mcL (3.82-4.97); Red Cell Distribution Width 13.2 % (11.5-14.5); Segmented Neutrophils % 79.6 %; White Blood Count 9.9 K/mcL (4.3-11.1)
[2022-05-16 04:43] LABS: VBG Ionized Calcium 1.13 mmol/L (1.15-1.35)
[2022-05-16 05:00] LABS: Albumin 2.7 g/dL (3.5-5.7); Bilirubin,Direct 0.1 mg/dL (0.0-0.2); Bilirubin,Indirect 0.3 mg/dL (0.0-1.0); Bilirubin,Total 0.4 mg/dL (0.3-1.0); Calcium 8.7 mg/dL (8.6-10.3); Globulin 2.7 g/dL (2.4-3.5); Magnesium 1.6 mg/dL (1.6-2.6); Phosphorous 3.2 mg/dL (2.7-4.5); Potassium 3.5 mEq/L (3.5-5.1); Total Protein 5.4 g/dL (6.4-8.9)
[2022-05-16 05:01] LABS: INR 1.1; Prothrombin Time 12.5 Seconds (9.4-12.1)
[2022-05-16 05:04] LABS: Activated Partial Thrombo Time 32.7 Seconds (26.0-36.0)
[2022-05-16] MEDS: Artificial Tears SOLN 15 ML BOTTLE BOTH EYES SCH ×6 (05:19→23:59)
[2022-05-16] MEDS: Insulin LISPRO 300 UNITS/3 ML VIAL SUBQ SCH ×6 (05:19→23:59)
[2022-05-16] MEDS: Potassium Chloride 40 MEQ/200 ML BAG IVPB PRN ×2 (06:12→17:49)
[2022-05-16] MEDS: FentaNYL (PF) 1,000 MCG/100 ML IV.SOLN IVC SCH ×2 (06:21→16:43)
[2022-05-16] MEDS: Ampicillin 2,000 MG in 0.9 % Sodium Chloride Mini Bag 100 ML IVPB SCH ×4 (06:26→23:47)
[2022-05-16] MEDS: Pantoprazole 40 MG VIAL IVP SCH (07:44)
[2022-05-16] MEDS: Chlorhexidine Rinse 15 ML MOUTHWASH MM SCH ×2 (07:44→20:33)
[2022-05-16] MEDS: *HR* Amiodarone 200 MG TABLET PO SCH ×2 (07:45→20:33)
[2022-05-16] MEDS: Furosemide 20 MG/2 ML VIAL IVP SCH ×2 (07:45→17:43)
[2022-05-16] MEDS: carvediloL 6.25 MG TABLET PO SCH (07:45)
[2022-05-16] MEDS: Dexamethasone Sodium Phos/PF 10 MG/ML VIAL IVP SCH (07:45)
[2022-05-16] MEDS: Thiamine (B-1) 100 MG in 0.9 % Sodium Chloride 50 ML IVPB SCH (07:48)
[2022-05-16 10:18] LABS: ABG Base Excess 5 mEq/L (-2 to 3); ABG HCO3 29 mEq/L (21-27); ABG Oxygen Saturation 97 % (95-98); ABG PCO2 42 mmHg (35-45); ABG PH 7.45 pH Units (7.32-7.45); ABG PO2 85 mmHg (85-104); ABG TCO2 31 mEq/L (20-26); Blood Gas Modality ASSIST CONTROL; Blood Gas VT 350 cc
[2022-05-16] MEDS: Acyclovir 550 MG in D5% in Water 100 ML IVPB SCH (11:07)
[2022-05-16] MEDS: cefTRIAXone 2,000 MG in 0.9 % Sodium Chloride Mini Bag 100 ML IVPB SCH (11:07)
[2022-05-16] MEDS: D5% in Water 1,000 ML IVC SCH (11:08)
[2022-05-16] MEDS: Potassium Chloride Elixir 20 MEQ/15 ML UDC GTUBE SCH ×2 (11:08→20:33)
[2022-05-16 11:28] LABS: EBV Quant Interpretation NOT DETECTED (Not Detected)
[2022-05-16 11:42] LABS: California Encephalitis IgG < 1:16 (< 1:16); California Encephalitis IgM < 1:16 (< 1:16); E.Equine Encephalitis IgG < 1:16 (< 1:16); E.Equine Encephalitis IgM < 1:16 (< 1:16); St. Louis Encephalitis IgG < 1:16 (< 1:16); St. Louis Encephalitis IgM < 1:16 (< 1:16); W.Equine Encephalitis IgG < 1:16 (< 1:16); W.Equine Encephalitis IgM < 1:16 (< 1:16)
[2022-05-16] MEDS: Insulin DETEMIR 100 UNIT/ML X5UNITS SUBQ SCH ×2 (13:40→20:34)
[2022-05-16] MEDS: *HR* Heparin 5,000 UNIT/ML VIAL IVP PRN (13:43)
[2022-05-16] MEDS ORDERED: *HR* Amiodarone 200 MG TABLET PO ONE (14:47)
[2022-05-16 14:57] LABS: Magnesium 1.9 mg/dL (1.6-2.6); Potassium 3.7 mEq/L (3.5-5.1)
[2022-05-16] MEDS: rOPINIRole 0.25 MG TABLET PO SCH (20:33)
[2022-05-16] MEDS: Heparin 25,000UNIT/250ML 1/2NS 25,000 UNIT/250 ML IV.SOLN IVC SCH (23:42)
[2022-05-17] MEDS: Acyclovir 550 MG in D5% in Water 100 ML IVPB SCH ×3 (00:11→23:06)
[2022-05-17] MEDS ORDERED: carvediloL 6.25 MG TABLET PO ONE (00:33)
[2022-05-17] MEDS: D5% in Water 1,000 ML IVC SCH ×2 (00:36→20:34)
[2022-05-17] MEDS: cefTRIAXone 2,000 MG in Water for inj. (sterile) 20 ML IVP SCH ×3 (00:51→23:03)
[2022-05-17] MEDS: FentaNYL (PF) 1,000 MCG/100 ML IV.SOLN IVC SCH (00:53)
[2022-05-17 01:20] LABS: VBG Ionized Calcium 1.19 mmol/L (1.15-1.35)
[2022-05-17 01:28] LABS: Basophils % 0.2 %; Hematocrit 30.8 % (35.3-44.9); Hemoglobin 10.1 g/dL (11.5-15.4); Immature Granulocytes % 2.2 % (0-4); Lymphocytes # 1.3 K/mcL (0.6-4.6); Lymphocytes % 8.2 %; Mean Corpuscular HGB Conc 32.8 g/dL (31.6-35.5); Mean Corpuscular Hemoglobin 30.8 pg (28.0-33.3); Mean Corpuscular Volume 93.9 fL (83.0-100.0); Mean Platelet Volume 10.8 fL (9.4-12.4); Monocytes # 1.7 K/mcL (0.0-1.3); Monocytes % 10.8 %; Platelet Count 282 K/mcL (140-400); Red Blood Count 3.28 M/mcL (3.82-4.97); Red Cell Distribution Width 13.4 % (11.5-14.5); Segmented Neutrophils % 78.6 %
[2022-05-17 01:30] LABS: White Blood Count 15.3 K/mcL (4.3-11.1)
[2022-05-17] MEDS: diazePAM 10 MG/2 ML SYRINGE IVP PRN (01:39)
[2022-05-17] MEDS: cefTRIAXone 2,000 MG in 0.9 % Sodium Chloride Mini Bag 100 ML IVPB SCH (01:56)
[2022-05-17 02:02] LABS: Albumin 2.9 g/dL (3.5-5.7); Bilirubin,Direct 0.1 mg/dL (0.0-0.2); Bilirubin,Indirect 0.3 mg/dL (0.0-1.0); Bilirubin,Total 0.4 mg/dL (0.3-1.0); Globulin 2.9 g/dL (2.4-3.5); Magnesium 2.2 mg/dL (1.6-2.6); Phosphorous 2.6 mg/dL (2.7-4.5); Potassium 4.4 mEq/L (3.5-5.1); Total Protein 5.8 g/dL (6.4-8.9)
[2022-05-17] MEDS: Artificial Tears SOLN 15 ML BOTTLE BOTH EYES SCH ×6 (03:59→23:07)
[2022-05-17] MEDS: Insulin LISPRO 300 UNITS/3 ML VIAL SUBQ SCH ×5 (03:59→20:34)
[2022-05-17] MEDS: Ipratropium/Albuterol Neb 3 ML IH SCH ×6 (04:10→23:36)
[2022-05-17 04:11] LABS: ABG Base Excess 5 mEq/L (-2 to 3); ABG HCO3 29 mEq/L (21-27); ABG Oxygen Saturation 98 % (95-98); ABG PCO2 41 mmHg (35-45); ABG PH 7.46 pH Units (7.32-7.45); ABG PO2 95 mmHg (85-104); ABG TCO2 30 mEq/L (20-26); Blood Gas VT 350 cc
[2022-05-17] MEDS: Ampicillin 2,000 MG in 0.9 % Sodium Chloride Mini Bag 100 ML IVPB SCH ×4 (05:33→23:04)
[2022-05-17 06:00] LABS: Heparin anti-factor XA UFH 0.44 IU/mL (0.30-0.70); Prothrombin Time 11.3 Seconds (9.4-12.1)
[2022-05-17 06:03] LABS: Activated Partial Thrombo Time 33.8 Seconds (26.0-36.0)
[2022-05-17] MEDS: carvediloL 6.25 MG TABLET PO SCH ×2 (08:48→18:07)
[2022-05-17] MEDS: Dexamethasone Sodium Phos/PF 10 MG/ML VIAL IVP SCH (08:49)
[2022-05-17] MEDS: Furosemide 20 MG/2 ML VIAL IVP SCH ×2 (08:49→18:07)
[2022-05-17] MEDS: Potassium Chloride Elixir 20 MEQ/15 ML UDC GTUBE SCH ×2 (08:50→20:37)
[2022-05-17] MEDS: Chlorhexidine Rinse 15 ML MOUTHWASH MM SCH ×2 (08:50→20:33)
[2022-05-17] MEDS: *HR* Amiodarone 200 MG TABLET PO SCH ×2 (08:50→20:33)
[2022-05-17] MEDS: Pantoprazole 40 MG VIAL IVP SCH (08:51)
[2022-05-17] MEDS: Thiamine (B-1) 100 MG in 0.9 % Sodium Chloride 50 ML IVPB SCH (08:51)
[2022-05-17] MEDS: Insulin DETEMIR 100 UNIT/ML X5UNITS SUBQ SCH ×2 (08:52→20:37)
[2022-05-17] MEDS: *HR* Heparin 5,000 UNIT/ML VIAL IVP PRN (13:38)
[2022-05-17] MEDS: Heparin 25,000UNIT/250ML 1/2NS 25,000 UNIT/250 ML IV.SOLN IVC SCH (20:33)
[2022-05-17] MEDS: rOPINIRole 0.25 MG TABLET PO SCH (20:44)
[2022-05-17 23:20] LABS: A.galactomannan Ag Index 0.05
[2022-05-18] MEDS: D5% in Water 1,000 ML IVC SCH ×2 (00:14→15:18)
[2022-05-18] MEDS: Insulin LISPRO 300 UNITS/3 ML VIAL SUBQ SCH ×7 (00:14→23:59)
[2022-05-18] MEDS: *HR* Dextrose 50 % in Water (Syg) 50 ML SYRINGE IVP PRN (03:07)
[2022-05-18] MEDS: Artificial Tears SOLN 15 ML BOTTLE BOTH EYES SCH ×6 (03:08→23:54)
[2022-05-18 03:42] LABS: Basophils % 0.2 %; Hematocrit 34.3 % (35.3-44.9); Immature Granulocytes % 1.7 % (0-4); Lymphocytes # 1.8 K/mcL (0.6-4.6); Lymphocytes % 8.8 %; Mean Corpuscular HGB Conc 32.1 g/dL (31.6-35.5); Mean Corpuscular Volume 93.5 fL (83.0-100.0); Mean Platelet Volume 10.8 fL (9.4-12.4); Monocytes # 2.6 K/mcL (0.0-1.3); Monocytes % 13.1 %; Nucleated Red Blood Cells 0.1 /100 WBC (0); Platelet Count 324 K/mcL (140-400); Red Blood Count 3.67 M/mcL (3.82-4.97); Red Cell Distribution Width 13.3 % (11.5-14.5); Segmented Neutrophils % 76.2 %
[2022-05-18 03:43] LABS: Neutrophils # 15.2 K/mcL (1.6-8.9)
[2022-05-18 03:45] LABS: VBG Ionized Calcium 1.15 mmol/L (1.15-1.35)
[2022-05-18 03:50] LABS: INR 1.1; Prothrombin Time 11.8 Seconds (9.4-12.1)
[2022-05-18 03:52] LABS: Activated Partial Thrombo Time 49.8 Seconds (26.0-36.0)
[2022-05-18 03:59] LABS: Albumin 2.8 g/dL (3.5-5.7); Albumin/Globulin Ratio 0.9 (1.1-2.2); Bilirubin,Total 0.3 mg/dL (0.3-1.0); Calcium 9.1 mg/dL (8.6-10.3); Globulin 3.1 g/dL (2.4-3.5); Potassium 4.1 mEq/L (3.5-5.1); Total Protein 5.9 g/dL (6.4-8.9)
[2022-05-18 04:00] LABS: Albumin 2.8 g/dL (3.5-5.7); Albumin/Globulin Ratio 0.9 (1.1-2.2); Bilirubin,Indirect 0.3 mg/dL (0.0-1.0); Bilirubin,Total 0.3 mg/dL (0.3-1.0); Globulin 3.1 g/dL (2.4-3.5); Magnesium 1.6 mg/dL (1.6-2.6); Phosphorous 3.7 mg/dL (2.7-4.5); Total Protein 5.9 g/dL (6.4-8.9)
[2022-05-18] MEDS: Ipratropium/Albuterol Neb 3 ML IH SCH ×6 (04:44→23:35)
[2022-05-18 05:01] LABS: ABG Base Excess 8 mEq/L (-2 to 3); ABG HCO3 33 mEq/L (21-27); ABG Oxygen Saturation 98 % (95-98); ABG PCO2 46 mmHg (35-45); ABG PH 7.47 pH Units (7.32-7.45); ABG PO2 96 mmHg (85-104); ABG TCO2 34 mEq/L (20-26); Blood Gas VT 350 cc
[2022-05-18] MEDS: Ampicillin 2,000 MG in 0.9 % Sodium Chloride Mini Bag 100 ML IVPB SCH ×4 (05:14→23:52)
[2022-05-18] MEDS: Dexamethasone Sodium Phos/PF 10 MG/ML VIAL IVP SCH (07:50)
[2022-05-18] MEDS: Furosemide 20 MG/2 ML VIAL IVP SCH ×2 (07:50→16:13)
[2022-05-18] MEDS: Potassium Chloride Elixir 20 MEQ/15 ML UDC GTUBE SCH ×2 (07:50→19:27)
[2022-05-18] MEDS: Pantoprazole 40 MG VIAL IVP SCH (07:50)
[2022-05-18] MEDS: *HR* Amiodarone 200 MG TABLET PO SCH ×2 (07:50→19:24)
[2022-05-18] MEDS: carvediloL 6.25 MG TABLET PO SCH ×2 (07:50→16:14)
[2022-05-18] MEDS: Insulin DETEMIR 100 UNIT/ML X5UNITS SUBQ SCH ×2 (07:51→21:17)
[2022-05-18] MEDS: Chlorhexidine Rinse 15 ML MOUTHWASH MM SCH ×2 (07:53→21:43)
[2022-05-18] MEDS: Heparin 25,000UNIT/250ML 1/2NS 25,000 UNIT/250 ML IV.SOLN IVC SCH (09:49)
[2022-05-18] MEDS: Thiamine (B-1) 100 MG in 0.9 % Sodium Chloride 50 ML IVPB SCH (09:51)
[2022-05-18] MEDS: Acyclovir 550 MG in D5% in Water 100 ML IVPB SCH ×2 (10:00→23:45)
[2022-05-18] MEDS: cefTRIAXone 2,000 MG in Water for inj. (sterile) 20 ML IVP SCH (11:36)
[2022-05-18] MEDS: rOPINIRole 0.25 MG TABLET PO SCH (19:27)
[2022-05-18 20:49] LABS: ABG Base Excess 13 mEq/L (-2 to 3); ABG HCO3 36 mEq/L (21-27); ABG Oxygen Saturation 86 % (95-98); ABG PCO2 38 mmHg (35-45); ABG PH 7.58 pH Units (7.32-7.45); ABG PO2 44 mmHg (85-104); ABG TCO2 37 mEq/L (20-26)
[2022-05-18] MEDS ORDERED: Furosemide 20 MG/2 ML VIAL IVP ONE (21:57)
[2022-05-18] MEDS: Bisacodyl 10 MG RECTAL SUPPOSITORY RC SCH (22:12)
[2022-05-18] MEDS ORDERED: Cefepime HCl 2,000 MG in 0.9 % Sodium Chloride 10 ML IVP SCH (23:30)
[2022-05-19] MEDS: Artificial Tears SOLN 15 ML BOTTLE BOTH EYES SCH ×5 (03:49→21:13)
[2022-05-19 04:00] LABS: VBG Ionized Calcium 1.13 mmol/L (1.15-1.35)
[2022-05-19 04:05] LABS: Basophils % 0.2 %; Hematocrit 37.3 % (35.3-44.9); Hemoglobin 11.8 g/dL (11.5-15.4); Immature Granulocytes % 1.3 % (0-4); Lymphocytes # 1.4 K/mcL (0.6-4.6); Lymphocytes % 7.5 %; Mean Corpuscular HGB Conc 31.6 g/dL (31.6-35.5); Mean Corpuscular Hemoglobin 29.9 pg (28.0-33.3); Mean Corpuscular Volume 94.4 fL (83.0-100.0); Mean Platelet Volume 10.7 fL (9.4-12.4); Monocytes # 2.3 K/mcL (0.0-1.3); Monocytes % 12.7 %; Neutrophils # 14.3 K/mcL (1.6-8.9); Nucleated Red Blood Cells 0.2 /100 WBC (0); Platelet Count 310 K/mcL (140-400); Red Blood Count 3.95 M/mcL (3.82-4.97); Red Cell Distribution Width 13.3 % (11.5-14.5); Segmented Neutrophils % 78.3 %; White Blood Count 18.3 K/mcL (4.3-11.1)
[2022-05-19] MEDS: Ipratropium/Albuterol Neb 3 ML IH SCH ×5 (04:09→20:30)
[2022-05-19 04:14] LABS: Heparin anti-factor XA UFH 0.53 IU/mL (0.30-0.70); INR 1.2; Prothrombin Time 13.2 Seconds (9.4-12.1)
[2022-05-19 04:16] LABS: Activated Partial Thrombo Time 48.7 Seconds (26.0-36.0)
[2022-05-19 04:21] LABS: Albumin 2.9 g/dL (3.5-5.7); Albumin/Globulin Ratio 0.9 (1.1-2.2); Bilirubin,Direct 0.1 mg/dL (0.0-0.2); Bilirubin,Indirect 0.4 mg/dL (0.0-1.0); Bilirubin,Total 0.5 mg/dL (0.3-1.0); Globulin 3.4 g/dL (2.4-3.5); Magnesium 1.7 mg/dL (1.6-2.6); Phosphorous 4.1 mg/dL (2.7-4.5); Total Protein 6.3 g/dL (6.4-8.9)
[2022-05-19 04:23] LABS: Albumin 2.9 g/dL (3.5-5.7); Albumin/Globulin Ratio 0.9 (1.1-2.2); Bilirubin,Total 0.5 mg/dL (0.3-1.0); Calcium 9.3 mg/dL (8.6-10.3); Globulin 3.4 g/dL (2.4-3.5); Potassium 3.8 mEq/L (3.5-5.1); Total Protein 6.3 g/dL (6.4-8.9)
[2022-05-19] MEDS: FentaNYL (PF) 1,000 MCG/100 ML IV.SOLN IVC SCH ×2 (04:34→21:15)
[2022-05-19] MEDS: D5% in Water 1,000 ML IVC SCH ×2 (04:34→18:06)
[2022-05-19] MEDS: Insulin LISPRO 300 UNITS/3 ML VIAL SUBQ SCH ×6 (04:35→21:14)
[2022-05-19] MEDS: Potassium Chloride 40 MEQ/200 ML BAG IVPB PRN ×2 (04:58→08:01)
[2022-05-19] MEDS: Ampicillin 2,000 MG in 0.9 % Sodium Chloride Mini Bag 100 ML IVPB SCH ×2 (05:07→12:00)
[2022-05-19] MEDS: Heparin 25,000UNIT/250ML 1/2NS 25,000 UNIT/250 ML IV.SOLN IVC SCH (07:15)
[2022-05-19] MEDS: Bisacodyl 10 MG RECTAL SUPPOSITORY RC SCH (08:01)
[2022-05-19] MEDS: Pantoprazole 40 MG VIAL IVP SCH (08:01)
[2022-05-19] MEDS: Furosemide 20 MG/2 ML VIAL IVP SCH ×3 (08:01→18:06)
[2022-05-19] MEDS: Dexamethasone Sodium Phos/PF 10 MG/ML VIAL IVP SCH (08:01)
[2022-05-19] MEDS: Chlorhexidine Rinse 15 ML MOUTHWASH MM SCH ×2 (08:01→21:14)
[2022-05-19] MEDS: carvediloL 6.25 MG TABLET PO SCH ×2 (08:03→18:02)
[2022-05-19] MEDS: Potassium Chloride Elixir 20 MEQ/15 ML UDC GTUBE SCH ×2 (08:03→21:15)
[2022-05-19] MEDS: *HR* Amiodarone 200 MG TABLET PO SCH ×2 (08:03→21:15)
[2022-05-19] MEDS: Insulin DETEMIR 100 UNIT/ML X5UNITS SUBQ SCH ×2 (08:03→21:15)
[2022-05-19 08:34] LABS: Aspergillus Ab by CF <1:8 (<1:8)
[2022-05-19] MEDS: Acyclovir 550 MG in D5% in Water 100 ML IVPB SCH ×2 (10:42→22:28)
[2022-05-19] MEDS: Thiamine (B-1) 100 MG in 0.9 % Sodium Chloride 50 ML IVPB SCH (10:42)
[2022-05-19] MEDS ORDERED: cefTRIAXone 2,000 MG in 0.9 % Sodium Chloride Mini Bag 100 ML IVPB SCH (18:00)
[2022-05-19] MEDS: rOPINIRole 0.25 MG TABLET PO SCH (21:15)
[2022-05-19] MEDS: Dexmedetomidine HCl 400 MCG/100 ML MLS IVC SCH (22:31)
[2022-05-20] MEDS: Ipratropium/Albuterol Neb 3 ML IH SCH ×7 (00:16→23:10)
[2022-05-20] MEDS: Insulin LISPRO 300 UNITS/3 ML VIAL SUBQ SCH ×6 (00:16→19:53)
[2022-05-20] MEDS: Artificial Tears SOLN 15 ML BOTTLE BOTH EYES SCH ×6 (04:15→19:53)
[2022-05-20] MEDS: D5% in Water 1,000 ML IVC SCH (04:16)
[2022-05-20 05:01] LABS: Basophils % 0.2 %; Hematocrit 36.5 % (35.3-44.9); Hemoglobin 11.5 g/dL (11.5-15.4); Immature Granulocytes % 1.2 % (0-4); Lymphocytes # 1.5 K/mcL (0.6-4.6); Lymphocytes % 8.5 %; Mean Corpuscular HGB Conc 31.5 g/dL (31.6-35.5); Mean Corpuscular Hemoglobin 30.1 pg (28.0-33.3); Mean Corpuscular Volume 95.5 fL (83.0-100.0); Mean Platelet Volume 10.9 fL (9.4-12.4); Monocytes # 1.9 K/mcL (0.0-1.3); Monocytes % 11.3 %; Neutrophils # 13.5 K/mcL (1.6-8.9); Nucleated Red Blood Cells 0.1 /100 WBC (0); Platelet Count 313 K/mcL (140-400); Red Blood Count 3.82 M/mcL (3.82-4.97); Red Cell Distribution Width 13.4 % (11.5-14.5); Segmented Neutrophils % 78.8 %; White Blood Count 17.1 K/mcL (4.3-11.1)
[2022-05-20 05:02] LABS: Heparin anti-factor XA UFH 0.49 IU/mL (0.30-0.70); INR 1.4; Prothrombin Time 15.5 Seconds (9.4-12.1)
[2022-05-20 05:05] LABS: Activated Partial Thrombo Time 47.8 Seconds (26.0-36.0)
[2022-05-20 05:07] LABS: VBG Ionized Calcium 1.16 mmol/L (1.15-1.35)
[2022-05-20 05:09] LABS: Albumin 3.1 g/dL (3.5-5.7); Bilirubin,Direct 0.1 mg/dL (0.0-0.2); Bilirubin,Indirect 0.5 mg/dL (0.0-1.0); Bilirubin,Total 0.6 mg/dL (0.3-1.0); Calcium 9.7 mg/dL (8.6-10.3); Magnesium 2.1 mg/dL (1.6-2.6); Phosphorous 3.5 mg/dL (2.7-4.5); Potassium 3.8 mEq/L (3.5-5.1); Total Protein 6.3 g/dL (6.4-8.9)
[2022-05-20 05:10] LABS: Globulin 3.2 g/dL (2.4-3.5)
[2022-05-20] MEDS: Potassium Chloride 40 MEQ/200 ML BAG IVPB PRN (05:23)
[2022-05-20] MEDS: carvediloL 6.25 MG TABLET PO SCH (07:54)
[2022-05-20] MEDS: *HR* Amiodarone 200 MG TABLET PO SCH (07:55)
[2022-05-20] MEDS: Potassium Chloride Elixir 20 MEQ/15 ML UDC GTUBE SCH ×2 (07:55→19:50)
[2022-05-20] MEDS: Chlorhexidine Rinse 15 ML MOUTHWASH MM SCH ×2 (08:04→19:52)
[2022-05-20] MEDS: Pantoprazole 40 MG VIAL IVP SCH (08:05)
[2022-05-20] MEDS: Thiamine (B-1) 100 MG in 0.9 % Sodium Chloride 50 ML IVPB SCH (08:05)
[2022-05-20] MEDS: Furosemide 20 MG/2 ML VIAL IVP SCH ×3 (08:05→16:13)
[2022-05-20] MEDS: Dexamethasone Sodium Phos/PF 10 MG/ML VIAL IVP SCH (08:05)
[2022-05-20] MEDS: Insulin DETEMIR 100 UNIT/ML X5UNITS SUBQ SCH ×2 (08:06→20:08)
[2022-05-20] MEDS: Bisacodyl 10 MG RECTAL SUPPOSITORY RC SCH (08:07)
[2022-05-20 09:03] LABS: ABG Base Excess 13 mEq/L (-2 to 3); ABG HCO3 36 mEq/L (21-27); ABG Oxygen Saturation 88 % (95-98); ABG PCO2 41 mmHg (35-45); ABG PH 7.56 pH Units (7.32-7.45); ABG PO2 47 mmHg (85-104); ABG TCO2 38 mEq/L (20-26)
[2022-05-20] MEDS: Acyclovir 550 MG in D5% in Water 100 ML IVPB SCH (11:15)
[2022-05-20] MEDS: Heparin 25,000UNIT/250ML 1/2NS 25,000 UNIT/250 ML IV.SOLN IVC SCH (14:10)
[2022-05-20] MEDS ORDERED: carvediloL 6.25 MG TABLET GTUBE SCH (17:00)
[2022-05-20] MEDS: rOPINIRole 0.25 MG TABLET GTUBE SCH (19:51)
[2022-05-20] MEDS ORDERED: *HR* Amiodarone 200 MG TABLET GTUBE SCH (21:00)
[2022-05-21] MEDS: Insulin LISPRO 300 UNITS/3 ML VIAL SUBQ SCH ×7 (00:28→23:12)
[2022-05-21] MEDS: Artificial Tears SOLN 15 ML BOTTLE BOTH EYES SCH ×7 (00:28→23:11)
[2022-05-21] MEDS: Acyclovir 550 MG in D5% in Water 100 ML IVPB SCH ×3 (00:41→23:11)
[2022-05-21] MEDS: Ipratropium/Albuterol Neb 3 ML IH SCH ×6 (03:48→20:19)
[2022-05-21 04:47] LABS: ABG Base Excess 9 mEq/L (-2 to 3); ABG HCO3 34 mEq/L (21-27); ABG Oxygen Saturation 96 % (95-98); ABG PCO2 47 mmHg (35-45); ABG PH 7.47 pH Units (7.32-7.45); ABG PO2 77 mmHg (85-104); ABG TCO2 36 mEq/L (20-26)
[2022-05-21 05:04] LABS: VBG Ionized Calcium 1.19 mmol/L (1.15-1.35)
[2022-05-21 05:18] LABS: Basophils % 0.1 %; Hematocrit 35.5 % (35.3-44.9); Hemoglobin 11.3 g/dL (11.5-15.4); Immature Granulocytes % 1.2 % (0-4); Lymphocytes # 1.6 K/mcL (0.6-4.6); Lymphocytes % 8.7 %; Mean Corpuscular HGB Conc 31.8 g/dL (31.6-35.5); Mean Corpuscular Hemoglobin 30.7 pg (28.0-33.3); Mean Corpuscular Volume 96.5 fL (83.0-100.0); Mean Platelet Volume 11.3 fL (9.4-12.4); Monocytes # 1.8 K/mcL (0.0-1.3); Monocytes % 9.6 %; Neutrophils # 14.8 K/mcL (1.6-8.9); Nucleated Red Blood Cells 0.2 /100 WBC (0); Platelet Count 269 K/mcL (140-400); Red Blood Count 3.68 M/mcL (3.82-4.97); Red Cell Distribution Width 13.5 % (11.5-14.5); Segmented Neutrophils % 80.4 %; White Blood Count 18.3 K/mcL (4.3-11.1)
[2022-05-21 05:25] LABS: Heparin anti-factor XA UFH 0.6 IU/mL (0.30-0.70); INR 1.5; Prothrombin Time 16.3 Seconds (9.4-12.1)
[2022-05-21 05:28] LABS: Activated Partial Thrombo Time 52.3 Seconds (26.0-36.0)
[2022-05-21 05:39] LABS: Albumin 2.9 g/dL (3.5-5.7); Albumin/Globulin Ratio 0.9 (1.1-2.2); Bilirubin,Direct 0.1 mg/dL (0.0-0.2); Bilirubin,Indirect 0.4 mg/dL (0.0-1.0); Bilirubin,Total 0.5 mg/dL (0.3-1.0); Calcium 9.4 mg/dL (8.6-10.3); Globulin 3.3 g/dL (2.4-3.5); Magnesium 1.9 mg/dL (1.6-2.6); Phosphorous 3.2 mg/dL (2.7-4.5); Potassium 3.7 mEq/L (3.5-5.1); Total Protein 6.2 g/dL (6.4-8.9)
[2022-05-21] MEDS: Potassium Chloride 40 MEQ/200 ML BAG IVPB PRN (06:01)
[2022-05-21] MEDS: Bisacodyl 10 MG RECTAL SUPPOSITORY RC SCH (07:27)
[2022-05-21] MEDS: Thiamine (B-1) 100 MG in 0.9 % Sodium Chloride 50 ML IVPB SCH (09:00)
[2022-05-21] MEDS: Insulin DETEMIR 100 UNIT/ML X5UNITS SUBQ SCH ×2 (09:00→20:47)
[2022-05-21] MEDS: Potassium Chloride Elixir 20 MEQ/15 ML UDC GTUBE SCH ×2 (09:00→20:23)
[2022-05-21] MEDS: Chlorhexidine Rinse 15 ML MOUTHWASH MM SCH ×2 (09:00→20:23)
[2022-05-21 09:07] LABS: Borrelia burgdorferi Abs CSF 0.06 LIV (<=0.99)
[2022-05-21 14:44] LABS: Herpes Simplex 1 Subtype PCR NOT DETECTED; Herpes Simplex Source CSF
[2022-05-21 14:51] LABS: Herpes Simplex 2 Subtype PCR NOT DETECTED
[2022-05-21] MEDS ORDERED: Chloraseptic Spray 177 ML BOTTLE MM PRN (16:13)
[2022-05-21] MEDS: Chloraseptic Spray 177 ML BOTTLE MM PRN (16:40)
[2022-05-21] MEDS: carvediloL 6.25 MG TABLET GTUBE SCH (17:13)
[2022-05-21] MEDS: Dexmedetomidine HCl 400 MCG/100 ML MLS IVC SCH ×2 (20:16→22:46)
[2022-05-21] MEDS: Heparin 25,000UNIT/250ML 1/2NS 25,000 UNIT/250 ML IV.SOLN IVC SCH ×2 (20:17→22:44)
[2022-05-21] MEDS: rOPINIRole 0.25 MG TABLET GTUBE SCH (20:23)
[2022-05-21] MEDS: Famotidine 20 MG TABLET GTUBE SCH (20:24)
[2022-05-22] MEDS: Ipratropium/Albuterol Neb 3 ML IH SCH ×6 (00:04→20:12)
[2022-05-22] MEDS: Insulin LISPRO 300 UNITS/3 ML VIAL SUBQ SCH ×6 (03:35→23:30)
[2022-05-22] MEDS: Artificial Tears SOLN 15 ML BOTTLE BOTH EYES SCH ×6 (03:35→23:20)
[2022-05-22 04:03] LABS: Basophils % 0.1 %; Eosinophils % 0.1 %; Hematocrit 34.7 % (35.3-44.9); Hemoglobin 10.9 g/dL (11.5-15.4); Lymphocytes % 11.7 %; Mean Corpuscular HGB Conc 31.4 g/dL (31.6-35.5); Mean Corpuscular Hemoglobin 30.9 pg (28.0-33.3); Mean Corpuscular Volume 98.3 fL (83.0-100.0); Mean Platelet Volume 10.9 fL (9.4-12.4); Monocytes # 1.5 K/mcL (0.0-1.3); Monocytes % 8.8 %; Neutrophils # 13.1 K/mcL (1.6-8.9); Platelet Count 238 K/mcL (140-400); Red Blood Count 3.53 M/mcL (3.82-4.97); Red Cell Distribution Width 13.7 % (11.5-14.5); Segmented Neutrophils % 78.3 %; White Blood Count 16.8 K/mcL (4.3-11.1)
[2022-05-22 04:06] LABS: VBG Ionized Calcium 1.18 mmol/L (1.15-1.35)
[2022-05-22 04:20] LABS: Albumin 2.8 g/dL (3.5-5.7); Albumin/Globulin Ratio 0.8 (1.1-2.2); Bilirubin,Total 0.5 mg/dL (0.3-1.0); Calcium 9.2 mg/dL (8.6-10.3); Globulin 3.3 g/dL (2.4-3.5); Phosphorous 2.9 mg/dL (2.7-4.5); Potassium 4.4 mEq/L (3.5-5.1); Total Protein 6.1 g/dL (6.4-8.9)
[2022-05-22 05:30] LABS: ABG Base Excess 5 mEq/L (-2 to 3); ABG HCO3 31 mEq/L (21-27); ABG Oxygen Saturation 96 % (95-98); ABG PCO2 47 mmHg (35-45); ABG PH 7.43 pH Units (7.32-7.45); ABG PO2 83 mmHg (85-104); ABG TCO2 32 mEq/L (20-26); Blood Gas Modality CPAP/PS
[2022-05-22] MEDS: Furosemide 40 MG TABLET PO SCH (07:49)
[2022-05-22] MEDS: Potassium Chloride Elixir 20 MEQ/15 ML UDC GTUBE SCH ×2 (07:49→20:21)
[2022-05-22] MEDS: Chlorhexidine Rinse 15 ML MOUTHWASH MM SCH ×2 (07:49→20:21)
[2022-05-22] MEDS: *HR* Amiodarone 200 MG TABLET GTUBE SCH (07:49)
[2022-05-22] MEDS: Famotidine 20 MG TABLET GTUBE SCH ×2 (07:50→20:22)
[2022-05-22] MEDS: carvediloL 6.25 MG TABLET GTUBE SCH ×2 (07:50→15:46)
[2022-05-22] MEDS: Bisacodyl 10 MG RECTAL SUPPOSITORY RC SCH (07:52)
[2022-05-22] MEDS: Thiamine (B-1) 100 MG in 0.9 % Sodium Chloride 50 ML IVPB SCH (07:53)
[2022-05-22] MEDS: Insulin DETEMIR 100 UNIT/ML X5UNITS SUBQ SCH ×2 (07:54→20:21)
[2022-05-22] MEDS: Acyclovir 550 MG in D5% in Water 100 ML IVPB SCH ×2 (10:59→23:22)
[2022-05-22] MEDS: rOPINIRole 0.25 MG TABLET GTUBE SCH (20:21)
[2022-05-22] MEDS: Dexmedetomidine HCl 400 MCG/100 ML MLS IVC SCH (23:20)
[2022-05-23] MEDS: Ipratropium/Albuterol Neb 3 ML IH SCH ×7 (00:05→23:03)
[2022-05-23] MEDS: Dexmedetomidine HCl 400 MCG/100 ML MLS IVC SCH (01:34)
[2022-05-23] MEDS: Insulin LISPRO 300 UNITS/3 ML VIAL SUBQ SCH ×6 (03:33→23:49)
[2022-05-23] MEDS: Artificial Tears SOLN 15 ML BOTTLE BOTH EYES SCH ×6 (03:33→23:49)
[2022-05-23 03:36] LABS: Basophils % 0.1 %; Eosinophils % 0.2 %; Hematocrit 32.4 % (35.3-44.9); Hemoglobin 10.2 g/dL (11.5-15.4); Immature Granulocytes % 1.1 % (0-4); Lymphocytes # 1.5 K/mcL (0.6-4.6); Lymphocytes % 8.2 %; Mean Corpuscular HGB Conc 31.5 g/dL (31.6-35.5); Mean Corpuscular Hemoglobin 30.8 pg (28.0-33.3); Mean Corpuscular Volume 97.9 fL (83.0-100.0); Mean Platelet Volume 11.1 fL (9.4-12.4); Monocytes # 1.8 K/mcL (0.0-1.3); Monocytes % 9.8 %; Neutrophils # 14.6 K/mcL (1.6-8.9); Platelet Count 235 K/mcL (140-400); Red Blood Count 3.31 M/mcL (3.82-4.97); Red Cell Distribution Width 13.6 % (11.5-14.5); Segmented Neutrophils % 80.6 %; White Blood Count 18.1 K/mcL (4.3-11.1)
[2022-05-23 03:48] LABS: VBG Ionized Calcium 1.21 mmol/L (1.15-1.35)
[2022-05-23 03:56] LABS: Magnesium 1.7 mg/dL (1.6-2.6); Potassium 4.2 mEq/L (3.5-5.1)
[2022-05-23] MEDS: Furosemide 40 MG TABLET PO SCH ×2 (08:26→09:39)
[2022-05-23] MEDS: Chlorhexidine Rinse 15 ML MOUTHWASH MM SCH ×2 (08:26→19:41)
[2022-05-23] MEDS: *HR* Amiodarone 200 MG TABLET GTUBE SCH (08:26)
[2022-05-23] MEDS: Potassium Chloride Elixir 20 MEQ/15 ML UDC GTUBE SCH ×2 (08:26→19:41)
[2022-05-23] MEDS: carvediloL 6.25 MG TABLET GTUBE SCH ×2 (08:27→15:36)
[2022-05-23] MEDS: Famotidine 20 MG TABLET GTUBE SCH ×2 (08:27→19:42)
[2022-05-23] MEDS: Bisacodyl 10 MG RECTAL SUPPOSITORY RC SCH (08:27)
[2022-05-23] MEDS: Insulin DETEMIR 100 UNIT/ML X5UNITS SUBQ SCH ×2 (08:33→19:42)
[2022-05-23] MEDS: Thiamine (B-1) 100 MG in 0.9 % Sodium Chloride 50 ML IVPB SCH (08:33)
[2022-05-23] MEDS: Heparin 25,000UNIT/250ML 1/2NS 25,000 UNIT/250 ML IV.SOLN IVC SCH (08:43)
[2022-05-23] MEDS: Chloraseptic Spray 177 ML BOTTLE MM PRN (10:08)
[2022-05-23] MEDS ORDERED: Albumin Human 5% 25.0 GM/500 ML IV.SOLN ONE (13:03)
[2022-05-23] MEDS: Albumin Human 5% 12.5 GM/250 ML IV.SOLN IVC SCH ×2 (13:12→13:39)
[2022-05-23] MEDS: Norepinephrine 4 MG/254 ML IV.SOLN IVC SCH (14:44)
[2022-05-23] MEDS: Cefepime HCl 2,000 MG in 0.9 % Sodium Chloride Mini Bag 100 ML IVPB SCH (15:46)
[2022-05-23] MEDS: rOPINIRole 0.25 MG TABLET GTUBE SCH (19:46)
[2022-05-24] MEDS: Ipratropium/Albuterol Neb 3 ML IH SCH ×6 (03:41→23:23)
[2022-05-24] MEDS: Artificial Tears SOLN 15 ML BOTTLE BOTH EYES SCH ×4 (04:27→16:38)
[2022-05-24] MEDS: Insulin LISPRO 300 UNITS/3 ML VIAL SUBQ SCH ×5 (04:27→21:17)
[2022-05-24] MEDS: Cefepime HCl 2,000 MG in 0.9 % Sodium Chloride Mini Bag 100 ML IVPB SCH ×2 (04:28→17:23)
[2022-05-24 04:44] LABS: EBV Quant Copy/mL <390 cpy/mL; Epstein Barr Virus Qnt Source CSF
[2022-05-24 04:54] LABS: Basophils % 0.1 %; Eosinophils # 0.1 K/mcL (0.0-0.6); Eosinophils % 0.6 %; Hematocrit 27.6 % (35.3-44.9); Immature Granulocytes % 1.3 % (0-4); Lymphocytes # 1.4 K/mcL (0.6-4.6); Lymphocytes % 8.9 %; Mean Corpuscular HGB Conc 30.8 g/dL (31.6-35.5); Mean Corpuscular Hemoglobin 30.9 pg (28.0-33.3); Mean Corpuscular Volume 100.4 fL (83.0-100.0); Mean Platelet Volume 11.4 fL (9.4-12.4); Monocytes # 1.5 K/mcL (0.0-1.3); Monocytes % 9.2 %; Neutrophils # 12.5 K/mcL (1.6-8.9); Platelet Count 174 K/mcL (140-400); Red Blood Count 2.75 M/mcL (3.82-4.97); Red Cell Distribution Width 13.9 % (11.5-14.5); Segmented Neutrophils % 79.9 %; White Blood Count 15.7 K/mcL (4.3-11.1)
[2022-05-24 04:58] LABS: Hemoglobin 8.5 g/dL (11.5-15.4)
[2022-05-24 05:21] LABS: Albumin 2.7 g/dL (3.5-5.7); Albumin/Globulin Ratio 0.9 (1.1-2.2); Bilirubin,Total 0.4 mg/dL (0.3-1.0); Calcium 8.8 mg/dL (8.6-10.3); Globulin 2.9 g/dL (2.4-3.5); Total Protein 5.6 g/dL (6.4-8.9)
[2022-05-24] MEDS: Dexmedetomidine HCl 400 MCG/100 ML MLS IVC SCH (07:29)
[2022-05-24] MEDS: carvediloL 6.25 MG TABLET GTUBE SCH ×2 (07:45→17:24)
[2022-05-24] MEDS: Bisacodyl 10 MG RECTAL SUPPOSITORY RC SCH (07:46)
[2022-05-24] MEDS: *HR* Amiodarone 200 MG TABLET GTUBE SCH (08:49)
[2022-05-24] MEDS: Potassium Chloride Elixir 20 MEQ/15 ML UDC GTUBE SCH ×2 (08:49→20:01)
[2022-05-24] MEDS: Furosemide 40 MG TABLET PO SCH (08:49)
[2022-05-24] MEDS: Chlorhexidine Rinse 15 ML MOUTHWASH MM SCH ×2 (08:49→20:02)
[2022-05-24] MEDS: Famotidine 20 MG TABLET GTUBE SCH ×2 (08:53→20:01)
[2022-05-24] MEDS: Insulin DETEMIR 100 UNIT/ML X5UNITS SUBQ SCH ×2 (08:53→21:18)
[2022-05-24] MEDS: Thiamine (B-1) 100 MG in 0.9 % Sodium Chloride 50 ML IVPB SCH (08:53)
[2022-05-24 10:41] LABS: EBV Quant Interpretation NOT DETECTED (Not Detected)
[2022-05-24] MEDS: *HR* Dextrose 50 % in Water (Syg) 50 ML SYRINGE IVP PRN (11:18)
[2022-05-24] MEDS: Heparin 25,000UNIT/250ML 1/2NS 25,000 UNIT/250 ML IV.SOLN IVC SCH (14:25)
[2022-05-24] MEDS: Norepinephrine 4 MG/254 ML IV.SOLN IVC SCH (16:38)
[2022-05-24] MEDS: rOPINIRole 0.25 MG TABLET GTUBE SCH (20:01)
[2022-05-25] MEDS: Insulin LISPRO 300 UNITS/3 ML VIAL SUBQ SCH ×6 (00:20→22:32)
[2022-05-25] MEDS: Ipratropium/Albuterol Neb 3 ML IH SCH ×6 (04:06→23:08)
[2022-05-25] MEDS: Cefepime HCl 2,000 MG in 0.9 % Sodium Chloride Mini Bag 100 ML IVPB SCH ×2 (05:04→17:45)
[2022-05-25 05:28] LABS: Basophils % 0.1 %; Eosinophils # 0.1 K/mcL (0.0-0.6); Eosinophils % 0.4 %; Hematocrit 27.4 % (35.3-44.9); Hemoglobin 8.6 g/dL (11.5-15.4); Lymphocytes # 1.4 K/mcL (0.6-4.6); Lymphocytes % 8.7 %; Mean Corpuscular HGB Conc 31.4 g/dL (31.6-35.5); Mean Corpuscular Volume 98.9 fL (83.0-100.0); Monocytes # 1.8 K/mcL (0.0-1.3); Neutrophils # 12.7 K/mcL (1.6-8.9); Platelet Count 196 K/mcL (140-400); Red Blood Count 2.77 M/mcL (3.82-4.97); Red Cell Distribution Width 13.9 % (11.5-14.5); Segmented Neutrophils % 78.8 %
[2022-05-25 06:05] LABS: Albumin 2.6 g/dL (3.5-5.7); Albumin/Globulin Ratio 0.8 (1.1-2.2); Bilirubin,Total 0.4 mg/dL (0.3-1.0); Calcium 9.1 mg/dL (8.6-10.3); Globulin 3.1 g/dL (2.4-3.5); Magnesium 1.5 mg/dL (1.6-2.6); Phosphorous 2.9 mg/dL (2.7-4.5); Potassium 4.1 mEq/L (3.5-5.1); Total Protein 5.7 g/dL (6.4-8.9)
[2022-05-25] MEDS: Chlorhexidine Rinse 15 ML MOUTHWASH MM SCH ×2 (09:06→22:32)
[2022-05-25] MEDS: Furosemide 40 MG TABLET PO SCH (09:06)
[2022-05-25] MEDS: Potassium Chloride Elixir 20 MEQ/15 ML UDC GTUBE SCH ×2 (09:06→22:31)
[2022-05-25] MEDS: Famotidine 20 MG TABLET GTUBE SCH ×2 (09:06→22:31)
[2022-05-25] MEDS: *HR* Amiodarone 200 MG TABLET GTUBE SCH (09:06)
[2022-05-25] MEDS: Thiamine (B-1) 100 MG in 0.9 % Sodium Chloride 50 ML IVPB SCH (09:06)
[2022-05-25] MEDS: carvediloL 6.25 MG TABLET GTUBE SCH ×2 (09:06→17:44)
[2022-05-25] MEDS: Insulin DETEMIR 100 UNIT/ML X5UNITS SUBQ SCH ×2 (09:07→22:35)
[2022-05-25] MEDS ORDERED: Apixaban 5 MG TABLET PO SCH (10:45)
[2022-05-25] MEDS ORDERED: Ondansetron 4 MG/2 ML VIAL IVP PRN (14:58)
[2022-05-25] MEDS ORDERED: Dextrose Gel 15 GM/37.5 ML TUBE PO PRN ×2 (14:58)
[2022-05-25] MEDS ORDERED: Acetaminophen 325 MG TABLET PO PRN (14:58)
[2022-05-25] MEDS ORDERED: D5% in Water 1,000 ML IVC PRN (14:58)
[2022-05-25] MEDS ORDERED: Naloxone 0.4 MG/ML INJ IVP PRN (14:58)
[2022-05-25] MEDS ORDERED: Chloraseptic Spray 177 ML BOTTLE MM PRN (14:58)
[2022-05-25] MEDS ORDERED: Artificial Tears SOLN 15 ML BOTTLE BOTH EYES PRN (14:58)
[2022-05-25] MEDS ORDERED: *HR* Dextrose 50 % in Water (Syg) 50 ML SYRINGE IVP PRN (14:58)
[2022-05-25] MEDS ORDERED: Bisacodyl 10 MG RECTAL SUPPOSITORY RC PRN (14:58)
[2022-05-25] MEDS ORDERED: Ipratropium/Albuterol Neb 3 ML ONE (15:29)
[2022-05-25] MEDS ORDERED: Vancomycin 1,250 MG/262.5 ML IV.SOLN IVPB SCH (16:00)
[2022-05-25] MEDS: Heparin 25,000UNIT/250ML 1/2NS 25,000 UNIT/250 ML IV.SOLN IVC SCH (16:05)
[2022-05-25] MEDS: Norepinephrine 4 MG/254 ML IV.SOLN IVC SCH (16:06)
[2022-05-25] MEDS: rOPINIRole 0.25 MG TABLET GTUBE SCH (22:31)
[2022-05-25] MEDS: Apixaban 5 MG TABLET PO SCH (22:31)
[2022-05-26] MEDS: Insulin LISPRO 300 UNITS/3 ML VIAL SUBQ SCH ×6 (00:40→19:54)
[2022-05-26] MEDS: Ipratropium/Albuterol Neb 3 ML IH SCH ×6 (03:48→23:30)
[2022-05-26] MEDS: Cefepime HCl 2,000 MG in 0.9 % Sodium Chloride Mini Bag 100 ML IVPB SCH ×2 (06:38→18:39)
[2022-05-26 07:08] LABS: Basophils % 0.1 %; Eosinophils % 0.1 %; Hematocrit 25.6 % (35.3-44.9); Hemoglobin 8.1 g/dL (11.5-15.4); Immature Granulocytes % 1.2 % (0-4); Lymphocytes # 1.1 K/mcL (0.6-4.6); Lymphocytes % 8.8 %; Mean Corpuscular HGB Conc 31.6 g/dL (31.6-35.5); Mean Corpuscular Volume 98.1 fL (83.0-100.0); Mean Platelet Volume 11.4 fL (9.4-12.4); Monocytes # 1.6 K/mcL (0.0-1.3); Monocytes % 13.5 %; Neutrophils # 9.2 K/mcL (1.6-8.9); Platelet Count 199 K/mcL (140-400); Red Blood Count 2.61 M/mcL (3.82-4.97); Red Cell Distribution Width 14.4 % (11.5-14.5); Segmented Neutrophils % 76.3 %
[2022-05-26 07:47] LABS: Magnesium 1.8 mg/dL (1.6-2.6); Phosphorous 3.8 mg/dL (2.7-4.5); Potassium 4.2 mEq/L (3.5-5.1)
[2022-05-26] MEDS ORDERED: Furosemide 40 MG TABLET PO SCH (09:00)
[2022-05-26] MEDS: carvediloL 6.25 MG TABLET GTUBE SCH ×2 (09:23→18:46)
[2022-05-26] MEDS: Apixaban 5 MG TABLET PO SCH (09:27)
[2022-05-26] MEDS: Chlorhexidine Rinse 15 ML MOUTHWASH MM SCH (09:27)
[2022-05-26] MEDS: *HR* Amiodarone 200 MG TABLET GTUBE SCH (09:27)
[2022-05-26] MEDS: Insulin DETEMIR 100 UNIT/ML X5UNITS SUBQ SCH ×2 (09:28→21:59)
[2022-05-26] MEDS: Famotidine 20 MG TABLET GTUBE SCH ×2 (09:28→21:59)
[2022-05-26] MEDS: Potassium Chloride Elixir 20 MEQ/15 ML UDC GTUBE SCH ×2 (09:31→21:59)
[2022-05-26] MEDS ORDERED: E-Z-HD (BARIUM SULF) SUSPENSION PO ONE (12:05)
[2022-05-26] MEDS ORDERED: E-Z-PAQUE (BARIUM SULF) SUSP 1 BOTTLE PO ONE (12:05)
[2022-05-26] MEDS: Thiamine (B-1) 100 MG in 0.9 % Sodium Chloride 50 ML IVPB SCH (14:27)
[2022-05-26] MEDS: Aspirin 81 MG TAB.CHEW GTUBE SCH (15:44)
[2022-05-26] MEDS: Apixaban 5 MG TABLET GTUBE SCH (21:59)
[2022-05-26] MEDS: rOPINIRole 0.25 MG TABLET GTUBE SCH (21:59)
[2022-05-27] MEDS: Insulin LISPRO 300 UNITS/3 ML VIAL SUBQ SCH ×6 (00:55→21:19)
[2022-05-27] MEDS: Ipratropium/Albuterol Neb 3 ML IH SCH ×2 (04:20→07:43)
[2022-05-27] MEDS: Cefepime HCl 2,000 MG in 0.9 % Sodium Chloride Mini Bag 100 ML IVPB SCH ×2 (05:06→18:00)
[2022-05-27 06:02] LABS: Basophils % 0.2 %; Eosinophils % 0.4 %; Hematocrit 25.7 % (35.3-44.9); Hemoglobin 8.2 g/dL (11.5-15.4); Immature Granulocytes % 0.9 % (0-4); Lymphocytes % 10.5 %; Mean Corpuscular HGB Conc 31.9 g/dL (31.6-35.5); Mean Corpuscular Hemoglobin 30.1 pg (28.0-33.3); Mean Corpuscular Volume 94.5 fL (83.0-100.0); Mean Platelet Volume 10.9 fL (9.4-12.4); Monocytes % 10.5 %; Neutrophils # 7.7 K/mcL (1.6-8.9); Platelet Count 210 K/mcL (140-400); Red Blood Count 2.72 M/mcL (3.82-4.97); Red Cell Distribution Width 14.7 % (11.5-14.5); Segmented Neutrophils % 77.5 %; White Blood Count 9.9 K/mcL (4.3-11.1)
[2022-05-27 06:32] LABS: Calcium 8.7 mg/dL (8.6-10.3); Magnesium 1.7 mg/dL (1.6-2.6); Potassium 3.9 mEq/L (3.5-5.1)
[2022-05-27] MEDS: Potassium Chloride Elixir 20 MEQ/15 ML UDC GTUBE SCH ×2 (10:09→21:23)
[2022-05-27] MEDS: Furosemide Oral Soln 40 MG/4 ML UDC GTUBE SCH (10:09)
[2022-05-27] MEDS: Apixaban 5 MG TABLET GTUBE SCH ×2 (10:09→21:24)
[2022-05-27] MEDS: Famotidine 20 MG TABLET GTUBE SCH ×2 (10:09→21:23)
[2022-05-27] MEDS ORDERED: Ipratropium/Albuterol Neb 3 ML IH PRN (10:09)
[2022-05-27] MEDS: Aspirin 81 MG TAB.CHEW GTUBE SCH (10:09)
[2022-05-27] MEDS: *HR* Amiodarone 200 MG TABLET GTUBE SCH (10:09)
[2022-05-27] MEDS: Insulin DETEMIR 100 UNIT/ML X5UNITS SUBQ SCH ×2 (10:25→21:24)
[2022-05-27] MEDS: carvediloL 6.25 MG TABLET GTUBE SCH ×2 (10:33→18:00)
[2022-05-27] MEDS: Thiamine (B-1) 100 MG in 0.9 % Sodium Chloride 50 ML IVPB SCH (10:37)
[2022-05-27] MEDS: rOPINIRole 0.25 MG TABLET GTUBE SCH (21:24)
[2022-05-28] MEDS: Insulin LISPRO 300 UNITS/3 ML VIAL SUBQ SCH ×6 (00:10→20:12)
[2022-05-28] MEDS: Cefepime HCl 2,000 MG in 0.9 % Sodium Chloride Mini Bag 100 ML IVPB SCH ×2 (05:33→18:13)
[2022-05-28 06:44] LABS: Basophils % 0.2 %; Eosinophils # 0.1 K/mcL (0.0-0.6); Eosinophils % 0.8 %; Hematocrit 26.3 % (35.3-44.9); Hemoglobin 8.2 g/dL (11.5-15.4); Immature Granulocytes % 0.6 % (0-4); Lymphocytes # 1.2 K/mcL (0.6-4.6); Lymphocytes % 9.6 %; Mean Corpuscular HGB Conc 31.2 g/dL (31.6-35.5); Mean Corpuscular Hemoglobin 30.3 pg (28.0-33.3); Mean Platelet Volume 11.3 fL (9.4-12.4); Monocytes % 8.3 %; Neutrophils # 10.1 K/mcL (1.6-8.9); Platelet Count 252 K/mcL (140-400); Red Blood Count 2.71 M/mcL (3.82-4.97); Red Cell Distribution Width 14.6 % (11.5-14.5); Segmented Neutrophils % 80.5 %; White Blood Count 12.5 K/mcL (4.3-11.1)
[2022-05-28 06:52] LABS: Magnesium 1.8 mg/dL (1.6-2.6); Potassium 3.7 mEq/L (3.5-5.1)
[2022-05-28] MEDS: Potassium Chloride Elixir 20 MEQ/15 ML UDC GTUBE SCH ×2 (08:23→20:17)
[2022-05-28] MEDS: Insulin DETEMIR 100 UNIT/ML X5UNITS SUBQ SCH ×2 (08:23→21:22)
[2022-05-28] MEDS: *HR* Amiodarone 200 MG TABLET GTUBE SCH (08:25)
[2022-05-28] MEDS: Famotidine 20 MG TABLET GTUBE SCH ×2 (08:25→20:17)
[2022-05-28] MEDS: Aspirin 81 MG TAB.CHEW GTUBE SCH (08:25)
[2022-05-28] MEDS: Furosemide Oral Soln 40 MG/4 ML UDC GTUBE SCH (08:25)
[2022-05-28] MEDS: Thiamine (B-1) 100 MG TABLET GTUBE SCH (08:25)
[2022-05-28] MEDS: carvediloL 6.25 MG TABLET GTUBE SCH ×2 (08:25→18:35)
[2022-05-28] MEDS: Apixaban 5 MG TABLET GTUBE SCH ×2 (08:26→20:17)
[2022-05-28] MEDS: rOPINIRole 0.25 MG TABLET GTUBE SCH (20:17)
[2022-05-29] MEDS: Insulin LISPRO 300 UNITS/3 ML VIAL SUBQ SCH ×6 (00:16→20:25)
[2022-05-29] MEDS: Cefepime HCl 2,000 MG in 0.9 % Sodium Chloride Mini Bag 100 ML IVPB SCH ×2 (04:27→17:42)
[2022-05-29 04:47] LABS: Basophils % 0.1 %; Eosinophils # 0.1 K/mcL (0.0-0.6); Eosinophils % 0.8 %; Hematocrit 25.6 % (35.3-44.9); Hemoglobin 8.3 g/dL (11.5-15.4); Immature Granulocytes % 0.7 % (0-4); Lymphocytes # 1.9 K/mcL (0.6-4.6); Lymphocytes % 11.9 %; Mean Corpuscular HGB Conc 32.4 g/dL (31.6-35.5); Mean Corpuscular Hemoglobin 31.3 pg (28.0-33.3); Mean Corpuscular Volume 96.6 fL (83.0-100.0); Mean Platelet Volume 10.7 fL (9.4-12.4); Monocytes # 1.2 K/mcL (0.0-1.3); Monocytes % 7.5 %; Neutrophils # 12.3 K/mcL (1.6-8.9); Platelet Count 255 K/mcL (140-400); Red Blood Count 2.65 M/mcL (3.82-4.97); Red Cell Distribution Width 14.3 % (11.5-14.5); White Blood Count 15.6 K/mcL (4.3-11.1)
[2022-05-29 05:10] LABS: Calcium 8.7 mg/dL (8.6-10.3); Potassium 3.9 mEq/L (3.5-5.1)
[2022-05-29] MEDS: Aspirin 81 MG TAB.CHEW GTUBE SCH (09:41)
[2022-05-29] MEDS: *HR* Amiodarone 200 MG TABLET GTUBE SCH (09:41)
[2022-05-29] MEDS: Thiamine (B-1) 100 MG TABLET GTUBE SCH (09:41)
[2022-05-29] MEDS: Apixaban 5 MG TABLET GTUBE SCH (09:41)
[2022-05-29] MEDS: Famotidine 20 MG TABLET GTUBE SCH (09:42)
[2022-05-29] MEDS: Potassium Chloride Elixir 20 MEQ/15 ML UDC GTUBE SCH (09:44)
[2022-05-29] MEDS: Furosemide Oral Soln 40 MG/4 ML UDC GTUBE SCH (09:48)
[2022-05-29] MEDS: Insulin DETEMIR 100 UNIT/ML X5UNITS SUBQ SCH ×2 (09:48→20:26)
[2022-05-29] MEDS: carvediloL 6.25 MG TABLET GTUBE SCH (10:13)
[2022-05-29 16:19] LABS: Calcium 8.8 mg/dL (8.6-10.3)
[2022-05-29] MEDS: carvediloL 6.25 MG TABLET PO SCH (17:42)
[2022-05-29] MEDS: rOPINIRole 0.25 MG TABLET PO SCH (20:45)
[2022-05-29] MEDS: Apixaban 5 MG TABLET PO SCH (20:45)
[2022-05-29] MEDS: Famotidine 20 MG TABLET PO SCH (20:46)
[2022-05-29] MEDS: Potassium Chloride Elixir 20 MEQ/15 ML UDC PO SCH (20:46)
[2022-05-30 03:44] LABS: Basophils % 0.2 %; Eosinophils # 0.1 K/mcL (0.0-0.6); Eosinophils % 0.8 %; Hemoglobin 8.3 g/dL (11.5-15.4); Immature Granulocytes % 0.7 % (0-4); Lymphocytes # 1.8 K/mcL (0.6-4.6); Lymphocytes % 14.2 %; Mean Corpuscular HGB Conc 33.2 g/dL (31.6-35.5); Mean Corpuscular Hemoglobin 31.3 pg (28.0-33.3); Mean Corpuscular Volume 94.3 fL (83.0-100.0); Mean Platelet Volume 10.9 fL (9.4-12.4); Monocytes # 0.9 K/mcL (0.0-1.3); Monocytes % 7.2 %; Platelet Count 284 K/mcL (140-400); Red Blood Count 2.65 M/mcL (3.82-4.97); Segmented Neutrophils % 76.9 %; White Blood Count 12.9 K/mcL (4.3-11.1)
[2022-05-30 04:09] LABS: Calcium 8.9 mg/dL (8.6-10.3); Potassium 3.9 mEq/L (3.5-5.1)
[2022-05-30] MEDS: Cefepime HCl 2,000 MG in 0.9 % Sodium Chloride Mini Bag 100 ML IVPB SCH ×2 (06:50→20:58)
[2022-05-30] MEDS: Insulin LISPRO 300 UNITS/3 ML VIAL SUBQ SCH ×6 (07:43→21:03)
[2022-05-30] MEDS: Potassium Chloride Elixir 20 MEQ/15 ML UDC PO SCH ×2 (08:15→20:58)
[2022-05-30] MEDS: Famotidine 20 MG TABLET PO SCH ×2 (08:15→21:01)
[2022-05-30] MEDS: Apixaban 5 MG TABLET PO SCH ×2 (08:16→21:01)
[2022-05-30] MEDS: Furosemide 40 MG TABLET PO SCH (08:16)
[2022-05-30] MEDS: carvediloL 6.25 MG TABLET PO SCH ×2 (08:16→16:33)
[2022-05-30] MEDS: Aspirin 81 MG TAB.CHEW PO SCH (08:16)
[2022-05-30] MEDS: *HR* Amiodarone 200 MG TABLET PO SCH (08:16)
[2022-05-30] MEDS: Thiamine (B-1) 100 MG TABLET PO SCH (08:17)
[2022-05-30 10:55] VITALS: TEMP 98
[2022-05-30 17:54] LABS: Influenza A PCR Negative (Negative); Influenza B PCR Negative (Negative); Resp. Syncytial Virus PCR Negative (Negative)
[2022-05-30 19:14] LABS: SARS-CoV-2 by PCR (In House) Negative (Negative)
[2022-05-30] MEDS: rOPINIRole 0.25 MG TABLET PO SCH (21:05)
[2022-05-31] MEDS: Insulin LISPRO 300 UNITS/3 ML VIAL SUBQ SCH ×3 (00:09→08:02)
[2022-05-31] MEDS: Cefepime HCl 2,000 MG in 0.9 % Sodium Chloride Mini Bag 100 ML IVPB SCH (05:14)
[2022-05-31 06:04] LABS: Basophils % 0.2 %; Eosinophils # 0.2 K/mcL (0.0-0.6); Eosinophils % 1.4 %; Hematocrit 23.2 % (35.3-44.9); Hemoglobin 7.5 g/dL (11.5-15.4); Immature Granulocytes % 1.1 % (0-4); Lymphocytes # 1.9 K/mcL (0.6-4.6); Lymphocytes % 15.4 %; Mean Corpuscular HGB Conc 32.3 g/dL (31.6-35.5); Mean Corpuscular Hemoglobin 31.5 pg (28.0-33.3); Mean Corpuscular Volume 97.5 fL (83.0-100.0); Mean Platelet Volume 10.7 fL (9.4-12.4); Monocytes # 0.7 K/mcL (0.0-1.3); Monocytes % 6.2 %; Neutrophils # 9.1 K/mcL (1.6-8.9); Platelet Count 298 K/mcL (140-400); Red Blood Count 2.38 M/mcL (3.82-4.97); Red Cell Distribution Width 14.4 % (11.5-14.5); Segmented Neutrophils % 75.7 %
[2022-05-31 06:23] LABS: Calcium 8.8 mg/dL (8.6-10.3); Potassium 3.9 mEq/L (3.5-5.1)
[2022-05-31 08:03] VITALS: BP 123/63; PULSE 55; O2SAT 100
[2022-05-31] MEDS: *HR* Amiodarone 200 MG TABLET PO SCH (08:49)
[2022-05-31] MEDS: Apixaban 5 MG TABLET PO SCH (08:49)
[2022-05-31] MEDS: Famotidine 20 MG TABLET PO SCH (08:49)
[2022-05-31] MEDS: carvediloL 6.25 MG TABLET PO SCH (08:49)
[2022-05-31] MEDS: Furosemide 40 MG TABLET PO SCH (08:49)
[2022-05-31] MEDS: Aspirin 81 MG TAB.CHEW PO SCH (08:50)
[2022-05-31] MEDS: Thiamine (B-1) 100 MG TABLET PO SCH (08:50)
[2022-05-31] MEDS: Potassium Chloride Elixir 20 MEQ/15 ML UDC PO SCH (08:50)
== END 2022-05-31 08:55 | DRG 870 ==
LOC: 2ANU 15:20 → EMEROOARM 15:20 → 2ANU 21:28 → SUATTDRO 21:40 → 2NNU 05-09 17:00 → ICNU 05-13 05:25 → 2ANU 05-25 14:50
PROVIDERS: ADMIT Student in an Organized Health Care Education/Training Program; ATTEND Internal Medicine
PROC: IRLUMPX (2022-05-15 12:00)